=== PATIENT | male | born 1955 | race African-American/Black ===

== ENCOUNTER 2019-06-21 12:12 | Inpatient (IN) | payer MEDICAID ==
[~2019-06-21] VITALS: Ht 182.9 cm; Wt 56.0 kg
[2019-06-21] VITALS (28 sets, daily range): BP systolic 55–138; BP diastolic 14–88
[2019-06-21] MEDS ORDERED: SODIUM CHLORIDE 0.9% 1,000 ML IV ONE ×3 (12:31→13:35)
[2019-06-21] MEDS ORDERED: ONDANSETRON HCL 4MG/2ML INJ IV STA (12:31)
[2019-06-21] MEDS ORDERED: FAMOTIDINE 20MG/2ML VIAL IV ONE (12:45)
[2019-06-21] MEDS ORDERED: DEXT 5%/0.45% NACL KCL 20MEQ/L 1,000 ML IV SCH ×2 (13:34→17:30)
[2019-06-21] MEDS ORDERED: BUPIVACAINE HCL 0.5% (5MG/ML) 50ML ONE (13:37)
[2019-06-21] MEDS ORDERED: MIDAZOLAM HCL 2 MG/2 ML VIAL ONE (13:40)
[2019-06-21] MEDS ORDERED: PROPOFOL 200MG/20ML VIAL IV ONE ×2 (13:40→13:45)
[2019-06-21] MEDS ORDERED: FENTANYL CITRATE/PF 50MCG/ML 2ML VIAL ONE (13:40)
[2019-06-21] MEDS ORDERED: ROCURONIUM BROMIDE 10MG/ML VIAL 5ML IV ONE (13:40)
[2019-06-21] MEDS ORDERED: SUCCINYLCHOLINE CHLORIDE 200MG/10ML IV ONE (13:41)
[2019-06-21] MEDS ORDERED: PIPERACILLIN/TAZ 3.375G PREMIX 50 ML IV ONE (13:45)
[2019-06-21] MEDS ORDERED: ONDANSETRON HCL 4MG/2ML INJ IV ONE (13:45)
[2019-06-21] MEDS ORDERED: ETOMIDATE 2MG/ML 10ML VIAL IV ONE (13:45)
[2019-06-21] MEDS ORDERED: ONDANSETRON HCL 4MG/2ML INJ IV PRN (13:45)
[2019-06-21] MEDS ORDERED: PIPERACILLIN/TAZOBACTAM 3.375 G in DEXT 5% WATER 100 ML IV SCH (13:45)
[2019-06-21] MEDS ORDERED: MORPHINE SULFATE 2 MG/ML CPJ (NOT FOR IM USE) IV PRN (13:45)
[2019-06-21] MEDS ORDERED: LIDOCAINE HCL/PF 1% 10 MG/ML 5ML VIAL ONE (13:54)
[2019-06-21] MEDS ORDERED: DIPHENHYDRAMINE 50MG/ML VIAL IV PRN (14:15)
[2019-06-21] MEDS ORDERED: ACETAMINOPHEN 650MG SUPP PR PRN (14:15)
[2019-06-21 14:48] LABS: HEMATOCRIT. 39.2 % (42.0-52.0); HEMOGLOBIN. 13.3 g/dL (14.0-18.0); MEAN CORPUSCULAR HEMOGLOBIN 33.3 pg (28.0-32.0); MEAN CORPUSCULAR VOLUME 97.8 fL (80.0-94.0); RED CELL DISTRIBUTION WIDTH 14.6 % (11.6-14.6)
[2019-06-21 14:50] LABS: CHLORIDE 109 mEq/L (98-107)
[2019-06-21 14:51] LABS: INR 1.4; PROTHROMBIN TIME 13.8 sec (9.6-11.0)
[2019-06-21 14:58] LABS: CLARITY URINE CLOUDY (CLEAR); COLOR URINE YELLOW (YELLOW); KETONES URINE NEGATIVE (NEGATIVE); LEUKOCYTE ESTERASE URINE TRACE (NEGATIVE); NITRITE URINE NEGATIVE (NEGATIVE); OCCULT BLOOD URINE 2+ (NEGATIVE); PROTEIN URINE 1+ (NEGATIVE); SPECIFIC GRAVITY URINE 1.016 (1.005-1.030); UROBILINOGEN URINE 0.2 E.U./dL (0.2-1.0)
[2019-06-21] MEDS ORDERED: NEOSTIGMINE METHYLSULFATE 1MG/ML 10 ML VIAL ONE (15:26)
[2019-06-21] MEDS ORDERED: GLYCOPYRROLATE 0.2 MG/ML 2ML VIAL ONE (15:27)
[2019-06-21 15:43] LABS: MEAN PLATELET VOLUME 8.1 fl (7.4-10.4); PLATELET 233 x1000/uL (130-400)
[2019-06-21 15:53] LABS: PLATELET ESTIMATE NORMAL
[2019-06-21] MEDS: MORPHINE SULFATE 2 MG/ML CPJ (NOT FOR IM USE) IV PRN (16:26)
[2019-06-21 16:27] LABS: BG CARBOXYHEMOGLOBIN 0.2 % (0.5-1.5); BG DEOXYHEMOGLOBIN 7.4 % (0.0-5.0); BG HCO3 ACT 15.9 mmol/L (22.0-26.0); BG METHEMOGLOBIN 0.3 % (0.0-1.5); BG OXYGEN SATURATION 92.6 % (92.0-98.5); BG OXYHEMOGLOBIN 92.1 % (94.0-97.0); BG PCO2 42.7 mmHg (35.0-45.0); BG PH 7.188 (7.350-7.450); BG PO2 80.6 mmHg (75.0-100.0); BG SAMPLE SITE RIGHT BRACHIAL; BG TIDAL VOLUME(mL) 450 mL; BG TOTAL HEMOGLOBIN 15.8 g/dL (12.0-18.0); BG VENT MODE VENT - A/C; BG VENT RATE 14 set
[2019-06-21] MEDS: PROPOFOL 10MG/ML 100ML 100 ML IV PRN (16:30)
[2019-06-21] MEDS ORDERED: SODIUM BICARBONATE 8.4% 1 MEQ/ML 50ML SYR IV NR (16:45)
[2019-06-21] MEDS: SODIUM CHLORIDE 0.9% 1,000 ML IV SCH ×2 (16:45→18:31)
[2019-06-21] MEDS ORDERED: SODIUM CHLORIDE 0.9% 500 ML IV SCH ×2 (19:15→20:15)
[2019-06-21] MEDS: DEXT 5%/0.45% NACL KCL 20MEQ/L 1,000 ML IV SCH (19:18)
[2019-06-21] MEDS: IPRATROPIUM/ALBUTEROL 0.5-3(2.5)MG/3ML NEB HHN SCH (20:47)
[2019-06-21] MEDS ORDERED: FAMOTIDINE 20MG/2ML VIAL IV SCH (21:00)
[2019-06-21] MEDS: FAMOTIDINE 20MG/2ML VIAL IV SCH (21:16)
[2019-06-21] MEDS: NOREPINEPHRINE 8 MG in DEXT 5% WATER 242 ML IV PRN (21:17)
[2019-06-22] VITALS (76 sets, daily range): BP systolic 44–181; BP diastolic 27–105
[2019-06-22] MEDS: IPRATROPIUM/ALBUTEROL 0.5-3(2.5)MG/3ML NEB HHN SCH ×3 (03:00→21:32)
[2019-06-22] MEDS: PROPOFOL 10MG/ML 100ML 100 ML IV PRN (05:26)
[2019-06-22 05:46] LABS: CHLORIDE 110 mEq/L (98-107)
[2019-06-22 05:47] LABS: HEMATOCRIT. 43.6 % (42.0-52.0); HEMOGLOBIN. 14.8 g/dL (14.0-18.0); MEAN CORPUSCULAR VOLUME 96.8 fL (80.0-94.0); MEAN PLATELET VOLUME 8.4 fl (7.4-10.4); PLATELET 194 x1000/uL (130-400); RED BLOOD CELL COUNT 4.51 mill/uL (4.7-6.1); RED CELL DISTRIBUTION WIDTH 14.7 % (11.6-14.6)
[2019-06-22] MEDS: DEXT 5%/0.45% NACL KCL 20MEQ/L 1,000 ML IV SCH ×2 (05:51→15:12)
[2019-06-22 07:12] LABS: PLATELET ESTIMATE NORMAL
[2019-06-22] MEDS: NOREPINEPHRINE 8 MG in DEXT 5% WATER 242 ML IV PRN (07:24)
[2019-06-22] MEDS: BUDESONIDE 0.5MG/2ML NEB HHN SCH ×2 (08:09→21:32)
[2019-06-22 08:17] LABS: BG BASE EXCESS -7.6 mmol/L (-2.0-2.0); BG CARBOXYHEMOGLOBIN 0.4 % (0.5-1.5); BG DEOXYHEMOGLOBIN 2.7 % (0.0-5.0); BG FRACTION INSPIRED OXYGEN 50; BG HCO3 ACT 17.3 mmol/L (22.0-26.0); BG METHEMOGLOBIN 0.2 % (0.0-1.5); BG OXYGEN SATURATION 97.3 % (92.0-98.5); BG OXYHEMOGLOBIN 96.7 % (94.0-97.0); BG PCO2 33.7 mmHg (35.0-45.0); BG PH 7.329 (7.350-7.450); BG PO2 101.9 mmHg (75.0-100.0); BG SAMPLE SITE RIGHT FEMORAL; BG TIDAL VOLUME(mL) 450 mL; BG TOTAL HEMOGLOBIN 13.6 g/dL (12.0-18.0); BG VENT MODE VENT - A/C; BG VENT RATE 18 set
[2019-06-22 12:40] LABS: BG BASE EXCESS -7.3 mmol/L (-2.0-2.0); BG CARBOXYHEMOGLOBIN 0.7 % (0.5-1.5); BG DEOXYHEMOGLOBIN 3.9 % (0.0-5.0); BG FRACTION INSPIRED OXYGEN 40; BG HCO3 ACT 16.7 mmol/L (22.0-26.0); BG METHEMOGLOBIN 0.1 % (0.0-1.5); BG OXYGEN SATURATION 96.1 % (92.0-98.5); BG OXYHEMOGLOBIN 95.3 % (94.0-97.0); BG PH 7.364 (7.350-7.450); BG PO2 83.5 mmHg (75.0-100.0); BG PRESSURE SUPPORT 8; BG SAMPLE SITE RIGHT BRACHIAL; BG VENT MODE VENT - CPAP
[2019-06-22] MEDS ORDERED: PIPERACILLIN/TAZOBACTAM 3.375 G in DEXT 5% WATER 100 ML IV SCH (13:00)
[2019-06-22] MEDS: PIPERACILLIN/TAZOBACTAM 2.25 G in DEXTROSE 5% WATER 50 ML IV SCH ×2 (14:00→20:27)
[2019-06-22] MEDS: SODIUM CHLORIDE 0.9% 1,000 ML IV SCH (14:00)
[2019-06-22] MEDS: IPRATROPIUM/ALBUTEROL 0.5-3(2.5)MG/3ML NEB HHN PRN (16:04)
[2019-06-22 16:20] LABS: HEPATITIS B SURFACE ANTIGEN NEGATIVE
[2019-06-22 16:50] LABS: HEPATITIS A AB IGM NEGATIVE (NEGATIVE)
[2019-06-22] MEDS: FAMOTIDINE 20MG/2ML VIAL IV SCH (20:27)
[2019-06-23] VITALS (41 sets, daily range): BP systolic 97–140; BP diastolic 50–84
[2019-06-23] MEDS: DEXT 5%/0.45% NACL KCL 20MEQ/L 1,000 ML IV SCH ×3 (01:05→21:10)
[2019-06-23] MEDS: PIPERACILLIN/TAZOBACTAM 2.25 G in DEXTROSE 5% WATER 50 ML IV SCH ×2 (02:25→08:14)
[2019-06-23] MEDS: IPRATROPIUM/ALBUTEROL 0.5-3(2.5)MG/3ML NEB HHN SCH ×4 (02:38→20:59)
[2019-06-23 05:50] LABS: HEMATOCRIT. 35.4 % (42.0-52.0); HEMOGLOBIN. 12.3 g/dL (14.0-18.0); MEAN CORPUSCULAR HEMOGLOBIN 33.2 pg (28.0-32.0); MEAN CORPUSCULAR VOLUME 95.9 fL (80.0-94.0); PLATELET 86 x1000/uL (130-400); RED BLOOD CELL COUNT 3.69 mill/uL (4.7-6.1)
[2019-06-23 05:57] LABS: CHLORIDE 112 mEq/L (98-107)
[2019-06-23 07:01] LABS: PLATELET ESTIMATE DECREASED
[2019-06-23] MEDS: BUDESONIDE 0.5MG/2ML NEB HHN SCH ×2 (09:03→21:00)
[2019-06-23] MEDS ORDERED: CEFEPIME 2,000 MG in DEXT 5% WATER 100 ML IV SCH (12:00)
[2019-06-23] MEDS: METRONIDAZOLE 500 MG PREMIX 100 ML IV SCH ×2 (14:15→22:03)
[2019-06-23] MEDS: FAMOTIDINE 20MG/2ML VIAL IV SCH (20:23)
[2019-06-23] MEDS: CEFAZOLIN 2,000 MG in DEXT 5% WATER 100 ML IV SCH (21:10)
[2019-06-24] VITALS (36 sets, daily range): BP systolic 90–129; BP diastolic 34–74
[2019-06-24] MEDS: IPRATROPIUM/ALBUTEROL 0.5-3(2.5)MG/3ML NEB HHN SCH ×4 (02:24→22:01)
[2019-06-24] MEDS: CEFAZOLIN 2,000 MG in DEXT 5% WATER 100 ML IV SCH ×3 (04:08→20:49)
[2019-06-24] MEDS: METRONIDAZOLE 500 MG PREMIX 100 ML IV SCH ×3 (06:09→23:41)
[2019-06-24 06:53] LABS: HEMATOCRIT. 33.1 % (42.0-52.0); HEMOGLOBIN. 11.6 g/dL (14.0-18.0); MEAN CORPUSCULAR HEMOGLOBIN 33.4 pg (28.0-32.0); MEAN CORPUSCULAR VOLUME 95.6 fL (80.0-94.0); RED BLOOD CELL COUNT 3.46 mill/uL (4.7-6.1)
[2019-06-24 07:13] LABS: CHLORIDE 108 mEq/L (98-107)
[2019-06-24] MEDS: DEXT 5%/0.45% NACL KCL 20MEQ/L 1,000 ML IV SCH ×2 (07:50→17:46)
[2019-06-24 08:11] LABS: HIV SCREEN 4G Non Reactive (Non Reactive)
[2019-06-24] MEDS ORDERED: SODIUM CHLORIDE 0.9% 500 ML IV ONE (11:15)
[2019-06-24] MEDS: BUDESONIDE 0.5MG/2ML NEB HHN SCH ×2 (11:40→21:59)
[2019-06-24] MEDS: MORPHINE SULFATE 2 MG/ML CPJ (NOT FOR IM USE) IV PRN (17:46)
[2019-06-24] MEDS: FAMOTIDINE 20MG/2ML VIAL IV SCH (20:49)
[2019-06-25] VITALS (57 sets, daily range): BP systolic 55–149; BP diastolic 34–83
[2019-06-25] MEDS: DEXT 5%/0.45% NACL KCL 20MEQ/L 1,000 ML IV SCH ×3 (04:10→19:36)
[2019-06-25] MEDS: CEFAZOLIN 2,000 MG in DEXT 5% WATER 100 ML IV SCH ×2 (05:12→12:14)
[2019-06-25] MEDS: METRONIDAZOLE 500 MG PREMIX 100 ML IV SCH ×3 (05:13→22:09)
[2019-06-25 07:30] LABS: CHLORIDE 110 mEq/L (98-107)
[2019-06-25 07:34] LABS: HEMATOCRIT. 35.1 % (42.0-52.0); HEMOGLOBIN. 11.9 g/dL (14.0-18.0); MEAN CORPUSCULAR HEMOGLOBIN 32.7 pg (28.0-32.0); RED BLOOD CELL COUNT 3.65 mill/uL (4.7-6.1); RED CELL DISTRIBUTION WIDTH 15.2 % (11.6-14.6)
[2019-06-25] MEDS: IPRATROPIUM/ALBUTEROL 0.5-3(2.5)MG/3ML NEB HHN SCH ×2 (09:43→20:19)
[2019-06-25] MEDS: BUDESONIDE 0.5MG/2ML NEB HHN SCH ×2 (09:43→20:19)
[2019-06-25 11:18] LABS: PLATELET ESTIMATE MARKEDLY DECREASED
[2019-06-25 11:23] LABS: MEAN PLATELET VOLUME 7.4 fl (7.4-10.4); PLATELET 26 x1000/uL (130-400)
[2019-06-25] MEDS: MORPHINE SULFATE 2 MG/ML CPJ (NOT FOR IM USE) IV PRN (12:54)
[2019-06-25] MEDS ORDERED: HYDROMORPHONE HCL/PF 2MG/ML CPJ IV PRN (14:15)
[2019-06-25] MEDS ORDERED: NALOXONE HCL 0.4 MG/ML 1ML VIAL IV PRN (14:15)
[2019-06-25 14:20] LABS: BG CARBOXYHEMOGLOBIN 1.3 % (0.5-1.5); BG DEOXYHEMOGLOBIN 27.7 % (0.0-5.0); BG FRACTION INSPIRED OXYGEN 60; BG HCO3 ACT 17.4 mmol/L (22.0-26.0); BG METHEMOGLOBIN 0.1 % (0.0-1.5); BG OXYGEN SATURATION 71.9 % (92.0-98.5); BG OXYHEMOGLOBIN 70.9 % (94.0-97.0); BG PCO2 35.5 mmHg (35.0-45.0); BG PH 7.308 (7.350-7.450); BG PO2 39.7 mmHg (75.0-100.0); BG SAMPLE SITE RIGHT RADIAL; BG TOTAL HEMOGLOBIN 13.8 g/dL (12.0-18.0); BG VENT MODE MASK - SIMPLE
[2019-06-25] MEDS: IPRATROPIUM BROMIDE (0.02%) 0.5MG/2.5ML NEB HHN SCH (15:12)
[2019-06-25 15:50] LABS: INR 1.2; PROTHROMBIN TIME 12.5 sec (9.6-11.0)
[2019-06-25] MEDS ORDERED: ETOMIDATE 2MG/ML 10ML VIAL IV ONE (15:52)
[2019-06-25] MEDS ORDERED: SUCCINYLCHOLINE CHLORIDE 200MG/10ML IV ONE (15:52)
[2019-06-25 16:31] LABS: BG BASE EXCESS -7.2 mmol/L (-2.0-2.0); BG CARBOXYHEMOGLOBIN 1.4 % (0.5-1.5); BG DEOXYHEMOGLOBIN 11.6 % (0.0-5.0); BG FRACTION INSPIRED OXYGEN 100; BG HCO3 ACT 19.7 mmol/L (22.0-26.0); BG METHEMOGLOBIN 0.2 % (0.0-1.5); BG OXYGEN SATURATION 88.2 % (92.0-98.5); BG OXYHEMOGLOBIN 86.8 % (94.0-97.0); BG PO2 60.8 mmHg (75.0-100.0); BG SAMPLE SITE RIGHT BRACHIAL; BG TIDAL VOLUME(mL) 500 mL; BG TOTAL HEMOGLOBIN 13.9 g/dL (12.0-18.0); BG VENT MODE VENT - A/C; BG VENT RATE 14 set
[2019-06-25] MEDS: PROPOFOL 10MG/ML 100ML 100 ML IV PRN (16:59)
[2019-06-25 19:13] LABS: PLATELET ESTIMATE MARKEDLY DECREASED
[2019-06-25 19:14] LABS: PLATELET 12 x1000/uL (130-400)
[2019-06-25] MEDS ORDERED: SODIUM BICARBONATE 8.4% 1 MEQ/ML 50ML SYR IV ONE (19:30)
[2019-06-25] MEDS ORDERED: SODIUM BICARBONATE 8.4% 1 MEQ/ML 50ML SYR IV NR (19:35)
[2019-06-25] MEDS ORDERED: SODIUM CHLORIDE 0.9% 250 ML IV NR (19:36)
[2019-06-25] MEDS ORDERED: NOREPINEPHRINE 4MG/250ML PMX 250 ML IV ONE (19:45)
[2019-06-25] MEDS ORDERED: PHENYLEPHRINE 20 MG in DEXT 5% WATER 248 ML IV PRN ×2 (19:45→19:47)
[2019-06-25] MEDS ORDERED: NOREPINEPHRINE 4 MG in DEXT 5% WATER 246 ML IV PRN (20:00)
[2019-06-25 20:09] LABS: BG CARBOXYHEMOGLOBIN 0.3 % (0.5-1.5); BG DEOXYHEMOGLOBIN 9.4 % (0.0-5.0); BG FRACTION INSPIRED OXYGEN 100; BG HCO3 ACT 21.7 mmol/L (22.0-26.0); BG METHEMOGLOBIN 0.1 % (0.0-1.5); BG OXYGEN SATURATION 90.6 % (92.0-98.5); BG OXYHEMOGLOBIN 90.2 % (94.0-97.0); BG PCO2 37.4 mmHg (35.0-45.0); BG PH 7.381 (7.350-7.450); BG PO2 60.6 mmHg (75.0-100.0); BG SAMPLE SITE RIGHT FEMORAL; BG TIDAL VOLUME(mL) 500 mL; BG TOTAL HEMOGLOBIN 11.3 g/dL (12.0-18.0); BG VENT MODE VENT - A/C; BG VENT RATE 22 set
[2019-06-25] MEDS: FAMOTIDINE 20MG/2ML VIAL IV SCH (22:09)
[2019-06-26] VITALS (102 sets, daily range): BP systolic 50–149; BP diastolic 15–83
[2019-06-26] MEDS: CEFAZOLIN 2,000 MG in DEXT 5% WATER 100 ML IV SCH ×3 (00:01→12:53)
[2019-06-26] MEDS: IPRATROPIUM/ALBUTEROL 0.5-3(2.5)MG/3ML NEB HHN SCH ×7 (00:03→23:40)
[2019-06-26] MEDS: NOREPINEPHRINE 8 MG in DEXT 5% WATER 242 ML IV PRN ×4 (00:40→22:47)
[2019-06-26] MEDS: LORAZEPAM 2MG/ML CPJ IV PRN (03:32)
[2019-06-26 05:14] LABS: BASOPHILS % 0.2 % (0.0-2.0); EOSINOPHILS % 0.4 % (0.0-5.0); HEMATOCRIT. 32.1 % (42.0-52.0); HEMOGLOBIN. 11.1 g/dL (14.0-18.0); LYMPHOCYTES % 14.4 % (20.0-50.0); MEAN CORPUSCULAR HEMOGLOBIN 32.8 pg (28.0-32.0); MEAN CORPUSCULAR VOLUME 94.8 fL (80.0-94.0); MEAN PLATELET VOLUME 9.8 fl (7.4-10.4); MONOCYTES % 7.6 % (2.0-8.0); NEUTROPHILS % 77.4 % (40.0-76.0); RED BLOOD CELL COUNT 3.39 mill/uL (4.7-6.1); RED CELL DISTRIBUTION WIDTH 15.2 % (11.6-14.6)
[2019-06-26 05:38] LABS: CHLORIDE 109 mEq/L (98-107)
[2019-06-26] MEDS: METRONIDAZOLE 500 MG PREMIX 100 ML IV SCH ×3 (06:13→21:44)
[2019-06-26 08:16] LABS: PLATELET 24 x1000/uL (130-400)
[2019-06-26] MEDS: IPRATROPIUM BROMIDE (0.02%) 0.5MG/2.5ML NEB HHN SCH ×2 (08:32→12:31)
[2019-06-26] MEDS: BUDESONIDE 0.5MG/2ML NEB HHN SCH ×2 (08:32→19:50)
[2019-06-26 08:45] LABS: VITAMIN B12 SERUM > 2000.0 pg/mL (211-911)
[2019-06-26 08:58] LABS: BG BASE EXCESS -5.8 mmol/L (-2.0-2.0); BG CARBOXYHEMOGLOBIN 0.3 % (0.5-1.5); BG DEOXYHEMOGLOBIN 5.7 % (0.0-5.0); BG FRACTION INSPIRED OXYGEN 100; BG HCO3 ACT 19.9 mmol/L (22.0-26.0); BG METHEMOGLOBIN 0.3 % (0.0-1.5); BG OXYGEN SATURATION 94.3 % (92.0-98.5); BG OXYHEMOGLOBIN 93.7 % (94.0-97.0); BG PH 7.315 (7.350-7.450); BG PO2 82.8 mmHg (75.0-100.0); BG SAMPLE SITE RIGHT RADIAL; BG TIDAL VOLUME(mL) 500 mL; BG TOTAL HEMOGLOBIN 12.4 g/dL (12.0-18.0); BG VENT MODE VENT - A/C; BG VENT RATE 22 set
[2019-06-26] MEDS: PROPOFOL 10MG/ML 100ML 100 ML IV PRN ×2 (09:33→21:45)
[2019-06-26] MEDS: DEXT 5%/0.45% NACL KCL 20MEQ/L 1,000 ML IV SCH (10:33)
[2019-06-26] MEDS ORDERED: LIDOCAINE HCL 1% 20ML VIAL (Pyxis) INJ ONE (11:02)
[2019-06-26] MEDS ORDERED: SODIUM BICARBONATE 4% (2.4MEQ) 5ML VIAL IV ONE (11:03)
[2019-06-26] MEDS: SODIUM BICARBONATE 100 MEQ in DEXTROSE 5% WATER 900 ML IV SCH (12:53)
[2019-06-26 16:27] LABS: BG CARBOXYHEMOGLOBIN 0.2 % (0.5-1.5); BG DEOXYHEMOGLOBIN 5.8 % (0.0-5.0); BG FRACTION INSPIRED OXYGEN 100; BG HCO3 ACT 18.9 mmol/L (22.0-26.0); BG METHEMOGLOBIN 0.2 % (0.0-1.5); BG OXYGEN SATURATION 94.2 % (92.0-98.5); BG OXYHEMOGLOBIN 93.8 % (94.0-97.0); BG PCO2 35.3 mmHg (35.0-45.0); BG PH 7.347 (7.350-7.450); BG PO2 75.1 mmHg (75.0-100.0); BG SAMPLE SITE RIGHT RADIAL; BG TIDAL VOLUME(mL) 500 mL; BG TOTAL HEMOGLOBIN 12.6 g/dL (12.0-18.0); BG VENT MODE VENT - A/C; BG VENT RATE 24 set
[2019-06-26] MEDS ORDERED: VANCOMYCIN 1 G PREMIX 200 ML IV NR (20:00)
[2019-06-26] MEDS: CEFEPIME 2,000 MG in DEXT 5% WATER 100 ML IV SCH (20:25)
[2019-06-26] MEDS: FAMOTIDINE 20MG/2ML VIAL IV SCH (20:25)
[2019-06-27] VITALS (100 sets, daily range): BP systolic 58–140; BP diastolic 31–83
[2019-06-27] MEDS: IPRATROPIUM/ALBUTEROL 0.5-3(2.5)MG/3ML NEB HHN SCH ×5 (03:50→21:14)
[2019-06-27] MEDS: NOREPINEPHRINE 8 MG in DEXT 5% WATER 242 ML IV PRN ×4 (04:17→19:07)
[2019-06-27 05:43] LABS: EOSINOPHILS % 0.5 % (0.0-5.0); HEMATOCRIT. 32.3 % (42.0-52.0); MEAN CORPUSCULAR HEMOGLOBIN 32.3 pg (28.0-32.0); MEAN CORPUSCULAR VOLUME 94.8 fL (80.0-94.0); MEAN PLATELET VOLUME 8.2 fl (7.4-10.4); MONOCYTES % 4.7 % (2.0-8.0); NEUTROPHILS % 82.8 % (40.0-76.0); PLATELET 51 x1000/uL (130-400); RED BLOOD CELL COUNT 3.41 mill/uL (4.7-6.1); RED CELL DISTRIBUTION WIDTH 15.2 % (11.6-14.6)
[2019-06-27] MEDS: VANCOMYCIN 750 MG PREMIX 150 ML IV SCH ×3 (05:51→22:37)
[2019-06-27] MEDS: METRONIDAZOLE 500 MG PREMIX 100 ML IV SCH ×3 (05:52→21:28)
[2019-06-27 05:59] LABS: CHLORIDE 107 mEq/L (98-107)
[2019-06-27 06:08] LABS: PHOSPHORUS 2.7 mg/dL (2.5-4.9)
[2019-06-27] MEDS: PROPOFOL 10MG/ML 100ML 100 ML IV PRN (07:55)
[2019-06-27] MEDS: BUDESONIDE 0.5MG/2ML NEB HHN SCH ×2 (08:08→21:14)
[2019-06-27] MEDS: SODIUM BICARBONATE 100 MEQ in DEXTROSE 5% WATER 900 ML IV SCH ×2 (08:34→21:28)
[2019-06-27] MEDS: CEFEPIME 2,000 MG in DEXT 5% WATER 100 ML IV SCH ×2 (08:35→20:30)
[2019-06-27] MEDS: FOLIC ACID 1MG TABLET PO SCH ×2 (09:00→11:12)
[2019-06-27] MEDS ORDERED: MAGNESIUM 2 G PREMIX 50 ML IV NR (10:00)
[2019-06-27 11:29] LABS: BG BASE EXCESS -0.8 mmol/L (-2.0-2.0); BG CARBOXYHEMOGLOBIN 0.3 % (0.5-1.5); BG DEOXYHEMOGLOBIN 2.1 % (0.0-5.0); BG FRACTION INSPIRED OXYGEN 60; BG METHEMOGLOBIN 0.1 % (0.0-1.5); BG OXYGEN SATURATION 97.9 % (92.0-98.5); BG OXYHEMOGLOBIN 97.5 % (94.0-97.0); BG PCO2 30.5 mmHg (35.0-45.0); BG PH 7.475 (7.350-7.450); BG PO2 115.6 mmHg (75.0-100.0); BG SAMPLE SITE RIGHT BRACHIAL; BG TIDAL VOLUME(mL) 500 mL; BG TOTAL HEMOGLOBIN 11.9 g/dL (12.0-18.0); BG VENT MODE VENT - A/C; BG VENT RATE 22 set
[2019-06-27] MEDS: MIDAZOLAM HCL 100 MG in DEXT 5% WATER 80 ML IV PRN (12:55)
[2019-06-27] MEDS: FENTANYL CITRATE/PF 500 MCG in SODIUM CHLORIDE 0.9% 40 ML IV PRN ×3 (12:56→19:14)
[2019-06-27] MEDS: FAMOTIDINE 20MG/2ML VIAL IV SCH (20:30)
[2019-06-27] MEDS ORDERED: IOHEXOL-350 100 ML BOTTLE ONE (22:11)
[2019-06-28] VITALS (98 sets, daily range): BP systolic 56–165; BP diastolic 15–94
[2019-06-28] MEDS: IPRATROPIUM/ALBUTEROL 0.5-3(2.5)MG/3ML NEB HHN SCH ×6 (01:08→20:16)
[2019-06-28] MEDS: VANCOMYCIN 750 MG PREMIX 150 ML IV SCH (06:10)
[2019-06-28] MEDS: METRONIDAZOLE 500 MG PREMIX 100 ML IV SCH ×3 (06:12→21:00)
[2019-06-28 06:19] LABS: BASOPHILS % 0.1 % (0.0-2.0); EOSINOPHILS % 0.4 % (0.0-5.0); HEMATOCRIT. 34.8 % (42.0-52.0); HEMOGLOBIN. 11.8 g/dL (14.0-18.0); MEAN CORPUSCULAR VOLUME 94.6 fL (80.0-94.0); MEAN PLATELET VOLUME 8.8 fl (7.4-10.4); MONOCYTES % 4.3 % (2.0-8.0); NEUTROPHILS % 86.2 % (40.0-76.0); RED BLOOD CELL COUNT 3.68 mill/uL (4.7-6.1); RED CELL DISTRIBUTION WIDTH 15.1 % (11.6-14.6)
[2019-06-28 06:41] LABS: CHLORIDE 100 mEq/L (98-107)
[2019-06-28 07:04] LABS: VANCOMYCIN TROUGH 15.6 ug/mL (5.0-10.0)
[2019-06-28 07:24] LABS: BG BASE EXCESS -0.3 mmol/L (-2.0-2.0); BG CARBOXYHEMOGLOBIN 0.3 % (0.5-1.5); BG DEOXYHEMOGLOBIN 5.7 % (0.0-5.0); BG FRACTION INSPIRED OXYGEN 40; BG HCO3 ACT 23.7 mmol/L (22.0-26.0); BG METHEMOGLOBIN 0.2 % (0.0-1.5); BG OXYGEN SATURATION 94.3 % (92.0-98.5); BG OXYHEMOGLOBIN 93.8 % (94.0-97.0); BG PCO2 36.5 mmHg (35.0-45.0); BG PO2 74.3 mmHg (75.0-100.0); BG SAMPLE SITE RIGHT BRACHIAL; BG TIDAL VOLUME(mL) 500 mL; BG TOTAL HEMOGLOBIN 12.2 g/dL (12.0-18.0); BG VENT MODE 18; BG VENT RATE 18 set
[2019-06-28 07:37] LABS: PLATELET 28 x1000/uL (130-400)
[2019-06-28] MEDS: BUDESONIDE 0.5MG/2ML NEB HHN SCH ×2 (08:13→20:15)
[2019-06-28] MEDS: FOLIC ACID 1MG TABLET PO SCH (08:31)
[2019-06-28] MEDS: CEFEPIME 2,000 MG in DEXT 5% WATER 100 ML IV SCH ×2 (08:41→19:59)
[2019-06-28] MEDS: NOREPINEPHRINE 8 MG in DEXT 5% WATER 242 ML IV PRN ×2 (08:41→17:15)
[2019-06-28] MEDS: DEXT 5%/0.45% NACL 1000ML 1,000 ML IV SCH (11:33)
[2019-06-28 14:15] LABS: *AMPHETAMINES SCREEN URINE NEGATIVE (NEGATIVE); *BARBITURATES SCREEN URINE NEGATIVE (NEGATIVE); *BENZODIAZEPINES SCREEN URINE PRESUMTIVE POSITIVE (NEGATIVE)
[2019-06-28 14:16] LABS: *COCAINE SCREEN URINE NEGATIVE (NEGATIVE); CANNABINOID URINE SCREEN PRESUMTIVE POSITIVE (NEGATIVE); METHADONE URINE SCREEN NEGATIVE (NEGATIVE); OPIATES URINE SCREEN NEGATIVE (NEGATIVE); PHENCYCLIDINE URINE SCREEN NEGATIVE (NEGATIVE)
[2019-06-28] MEDS: VANCOMYCIN 1 G PREMIX 200 ML IV SCH ×2 (14:22→21:00)
[2019-06-28] MEDS: FENTANYL CITRATE/PF 500 MCG in SODIUM CHLORIDE 0.9% 40 ML IV PRN (17:17)
[2019-06-28] MEDS: FAMOTIDINE 20MG/2ML VIAL IV SCH (19:59)
[2019-06-29] VITALS (92 sets, daily range): BP systolic 76–161; BP diastolic 40–91
[2019-06-29] MEDS: IPRATROPIUM/ALBUTEROL 0.5-3(2.5)MG/3ML NEB HHN SCH ×6 (00:10→20:32)
[2019-06-29] MEDS: NOREPINEPHRINE 8 MG in DEXT 5% WATER 242 ML IV PRN ×4 (00:39→19:19)
[2019-06-29] MEDS: MIDAZOLAM HCL 100 MG in DEXT 5% WATER 80 ML IV PRN (03:21)
[2019-06-29] MEDS: FENTANYL CITRATE/PF 500 MCG in SODIUM CHLORIDE 0.9% 40 ML IV PRN ×3 (03:21→16:51)
[2019-06-29] MEDS: METRONIDAZOLE 500 MG PREMIX 100 ML IV SCH ×3 (05:00→21:36)
[2019-06-29] MEDS: DEXT 5%/0.45% NACL 1000ML 1,000 ML IV SCH ×2 (05:52→07:32)
[2019-06-29] MEDS: VANCOMYCIN 1 G PREMIX 200 ML IV SCH (05:52)
[2019-06-29 06:23] LABS: BASOPHILS % 0.2 % (0.0-2.0); EOSINOPHILS % 0.2 % (0.0-5.0); HEMATOCRIT. 32.3 % (42.0-52.0); HEMOGLOBIN. 11.1 g/dL (14.0-18.0); LYMPHOCYTES % 8.5 % (20.0-50.0); MEAN CORPUSCULAR HEMOGLOBIN 32.7 pg (28.0-32.0); MEAN PLATELET VOLUME 9.5 fl (7.4-10.4); MONOCYTES % 4.7 % (2.0-8.0); NEUTROPHILS % 86.4 % (40.0-76.0); PLATELET 59 x1000/uL (130-400); RED CELL DISTRIBUTION WIDTH 14.9 % (11.6-14.6)
[2019-06-29 07:19] LABS: CHLORIDE 100 mEq/L (98-107)
[2019-06-29 07:27] LABS: PHOSPHORUS 2.5 mg/dL (2.5-4.9)
[2019-06-29] MEDS: BUDESONIDE 0.5MG/2ML NEB HHN SCH ×2 (08:40→20:32)
[2019-06-29] MEDS: FOLIC ACID 1MG TABLET PO SCH (09:00)
[2019-06-29 09:02] LABS: BG BASE EXCESS 4.3 mmol/L (-2.0-2.0); BG CARBOXYHEMOGLOBIN 0.6 % (0.5-1.5); BG DEOXYHEMOGLOBIN 2.6 % (0.0-5.0); BG FRACTION INSPIRED OXYGEN 40; BG HCO3 ACT 29.8 mmol/L (22.0-26.0); BG METHEMOGLOBIN 0.2 % (0.0-1.5); BG OXYGEN SATURATION 97.4 % (92.0-98.5); BG OXYHEMOGLOBIN 96.6 % (94.0-97.0); BG PH 7.402 (7.350-7.450); BG PO2 103.5 mmHg (75.0-100.0); BG SAMPLE SITE RIGHT RADIAL; BG TIDAL VOLUME(mL) 500 mL; BG TOTAL HEMOGLOBIN 11.2 g/dL (12.0-18.0); BG VENT MODE VENT - A/C; BG VENT RATE 16 set
[2019-06-29] MEDS: CEFEPIME 2,000 MG in DEXT 5% WATER 100 ML IV SCH ×2 (09:04→21:36)
[2019-06-29] MEDS: VANCOMYCIN 750 MG PREMIX 150 ML IV SCH (19:18)
[2019-06-29] MEDS: FAMOTIDINE 20MG/2ML VIAL IV SCH (21:35)
[2019-06-29] MEDS: LORAZEPAM 2MG/ML CPJ IV PRN (21:38)
[2019-06-30] VITALS (92 sets, daily range): BP systolic 51–136; BP diastolic 35–89
[2019-06-30] MEDS: IPRATROPIUM/ALBUTEROL 0.5-3(2.5)MG/3ML NEB HHN SCH ×7 (00:29→23:52)
[2019-06-30] MEDS: NOREPINEPHRINE 8 MG in DEXT 5% WATER 242 ML IV PRN ×4 (00:35→22:36)
[2019-06-30] MEDS: VANCOMYCIN 750 MG PREMIX 150 ML IV SCH ×3 (01:15→18:05)
[2019-06-30 05:51] LABS: BASOPHILS % 0.2 % (0.0-2.0); EOSINOPHILS % 0.3 % (0.0-5.0); HEMATOCRIT. 27.5 % (42.0-52.0); HEMOGLOBIN. 9.5 g/dL (14.0-18.0); MEAN CORPUSCULAR HEMOGLOBIN 32.8 pg (28.0-32.0); MEAN CORPUSCULAR VOLUME 94.9 fL (80.0-94.0); MEAN PLATELET VOLUME 9.3 fl (7.4-10.4); MONOCYTES % 5.1 % (2.0-8.0); NEUTROPHILS % 84.4 % (40.0-76.0); RED CELL DISTRIBUTION WIDTH 14.5 % (11.6-14.6)
[2019-06-30 06:03] LABS: PLATELET 34 x1000/uL (130-400)
[2019-06-30] MEDS: METRONIDAZOLE 500 MG PREMIX 100 ML IV SCH ×3 (06:20→21:06)
[2019-06-30] MEDS: FENTANYL CITRATE/PF 500 MCG in SODIUM CHLORIDE 0.9% 40 ML IV PRN ×2 (06:21→21:10)
[2019-06-30] MEDS: DEXT 5%/0.45% NACL 1000ML 1,000 ML IV SCH (06:22)
[2019-06-30 06:32] LABS: CHLORIDE 102 mEq/L (98-107)
[2019-06-30 07:42] LABS: BG BASE EXCESS 1.5 mmol/L (-2.0-2.0); BG CARBOXYHEMOGLOBIN 0.1 % (0.5-1.5); BG DEOXYHEMOGLOBIN 16.5 % (0.0-5.0); BG FRACTION INSPIRED OXYGEN 40; BG HCO3 ACT 27.2 mmol/L (22.0-26.0); BG METHEMOGLOBIN 0.2 % (0.0-1.5); BG OXYGEN SATURATION 83.5 % (92.0-98.5); BG OXYHEMOGLOBIN 83.2 % (94.0-97.0); BG PCO2 48.3 mmHg (35.0-45.0); BG PH 7.368 (7.350-7.450); BG PO2 48.5 mmHg (75.0-100.0); BG SAMPLE SITE RIGHT RADIAL; BG TIDAL VOLUME(mL) 500 mL; BG TOTAL HEMOGLOBIN 9.7 g/dL (12.0-18.0); BG VENT MODE VENT - A/C; BG VENT RATE 16 set
[2019-06-30] MEDS: BUDESONIDE 0.5MG/2ML NEB HHN SCH ×2 (08:59→20:17)
[2019-06-30 09:00] LABS: BG BASE EXCESS 3.4 mmol/L (-2.0-2.0); BG CARBOXYHEMOGLOBIN 0.3 % (0.5-1.5); BG DEOXYHEMOGLOBIN 2.9 % (0.0-5.0); BG FRACTION INSPIRED OXYGEN 40; BG HCO3 ACT 28.4 mmol/L (22.0-26.0); BG METHEMOGLOBIN 0.3 % (0.0-1.5); BG OXYGEN SATURATION 97.1 % (92.0-98.5); BG OXYHEMOGLOBIN 96.5 % (94.0-97.0); BG PCO2 44.9 mmHg (35.0-45.0); BG PH 7.419 (7.350-7.450); BG PO2 105.5 mmHg (75.0-100.0); BG SAMPLE SITE RIGHT RADIAL; BG TIDAL VOLUME(mL) 500 mL; BG TOTAL HEMOGLOBIN 10.4 g/dL (12.0-18.0); BG VENT MODE VENT - A/C; BG VENT RATE 16 set
[2019-06-30] MEDS: FOLIC ACID 1MG TABLET PO SCH (09:00)
[2019-06-30] MEDS: CEFEPIME 2,000 MG in DEXT 5% WATER 100 ML IV SCH ×2 (10:33→21:06)
[2019-06-30] MEDS ORDERED: MAGNESIUM 2 G PREMIX 50 ML IV SCH (12:00)
[2019-06-30] MEDS: FAMOTIDINE 20MG/2ML VIAL IV SCH (21:06)
[2019-07-01] VITALS (94 sets, daily range): BP systolic 82–141; BP diastolic 52–99
[2019-07-01] MEDS: DEXT 5%/0.45% NACL 1000ML 1,000 ML IV SCH ×2 (01:26→20:59)
[2019-07-01] MEDS: VANCOMYCIN 750 MG PREMIX 150 ML IV SCH ×3 (01:27→17:56)
[2019-07-01] MEDS: LORAZEPAM 2MG/ML CPJ IV PRN ×4 (01:27→20:20)
[2019-07-01] MEDS: IPRATROPIUM/ALBUTEROL 0.5-3(2.5)MG/3ML NEB HHN SCH ×5 (04:18→20:45)
[2019-07-01] MEDS: FENTANYL CITRATE/PF 500 MCG in SODIUM CHLORIDE 0.9% 40 ML IV PRN ×3 (05:39→20:59)
[2019-07-01 06:04] LABS: BASOPHILS % 0.3 % (0.0-2.0); EOSINOPHILS % 0.2 % (0.0-5.0); HEMATOCRIT. 25.9 % (42.0-52.0); MEAN CORPUSCULAR HEMOGLOBIN 32.8 pg (28.0-32.0); MEAN CORPUSCULAR VOLUME 94.7 fL (80.0-94.0); MEAN PLATELET VOLUME 10.1 fl (7.4-10.4); MONOCYTES % 4.6 % (2.0-8.0); NEUTROPHILS % 85.9 % (40.0-76.0); RED BLOOD CELL COUNT 2.73 mill/uL (4.7-6.1); RED CELL DISTRIBUTION WIDTH 14.7 % (11.6-14.6)
[2019-07-01 06:17] LABS: CHLORIDE 100 mEq/L (98-107)
[2019-07-01 06:44] LABS: PLATELET 30 x1000/uL (130-400)
[2019-07-01] MEDS: NOREPINEPHRINE 8 MG in DEXT 5% WATER 242 ML IV PRN (07:44)
[2019-07-01] MEDS: CEFEPIME 2,000 MG in DEXT 5% WATER 100 ML IV SCH ×2 (08:06→20:59)
[2019-07-01] MEDS: FOLIC ACID 1MG TABLET PO SCH (08:07)
[2019-07-01 08:30] LABS: BG BASE EXCESS 4.1 mmol/L (-2.0-2.0); BG CARBOXYHEMOGLOBIN 0.3 % (0.5-1.5); BG DEOXYHEMOGLOBIN 8.1 % (0.0-5.0); BG FRACTION INSPIRED OXYGEN 40; BG HCO3 ACT 27.7 mmol/L (22.0-26.0); BG METHEMOGLOBIN 0.2 % (0.0-1.5); BG OXYGEN SATURATION 91.9 % (92.0-98.5); BG OXYHEMOGLOBIN 91.4 % (94.0-97.0); BG PCO2 37.8 mmHg (35.0-45.0); BG PH 7.483 (7.350-7.450); BG PO2 62.1 mmHg (75.0-100.0); BG SAMPLE SITE RIGHT RADIAL; BG TIDAL VOLUME(mL) 500 mL; BG TOTAL HEMOGLOBIN 9.5 g/dL (12.0-18.0); BG VENT MODE VENT - A/C; BG VENT RATE 16 set
[2019-07-01] MEDS: BUDESONIDE 0.5MG/2ML NEB HHN SCH ×2 (08:57→20:45)
[2019-07-01] MEDS ORDERED: DIATR MEGLU/DIATRIZOATE SOLN 30ML NG NR (12:00)
[2019-07-01] MEDS ORDERED: DIATR MEGLU/DIATRIZOATE SOLN 120ML ONE (13:22)
[2019-07-01] MEDS: METHYLPREDNISOLONE SOD SUCC 40 MG/ML VIAL IV SCH (17:56)
[2019-07-01] MEDS: FAMOTIDINE 20MG/2ML VIAL IV SCH (21:16)
[2019-07-02] VITALS (95 sets, daily range): BP systolic 83–140; BP diastolic 44–102
[2019-07-02] MEDS: NOREPINEPHRINE 8 MG in DEXT 5% WATER 242 ML IV PRN ×2 (00:39→14:16)
[2019-07-02] MEDS: IPRATROPIUM/ALBUTEROL 0.5-3(2.5)MG/3ML NEB HHN SCH ×6 (00:52→20:15)
[2019-07-02] MEDS: VANCOMYCIN 750 MG PREMIX 150 ML IV SCH ×3 (01:36→17:18)
[2019-07-02] MEDS: LORAZEPAM 2MG/ML CPJ IV PRN ×3 (04:32→19:39)
[2019-07-02] MEDS: FENTANYL CITRATE/PF 1,000 MCG in SODIUM CHLORIDE 0.9% 80 ML IV PRN ×2 (04:33→16:20)
[2019-07-02 06:30] LABS: HEMATOCRIT. 27.3 % (42.0-52.0); HEMOGLOBIN. 9.4 g/dL (14.0-18.0); MEAN CORPUSCULAR HEMOGLOBIN 32.8 pg (28.0-32.0); MEAN PLATELET VOLUME 10.9 fl (7.4-10.4); PLATELET 59 x1000/uL (130-400); RED BLOOD CELL COUNT 2.87 mill/uL (4.7-6.1); RED CELL DISTRIBUTION WIDTH 14.8 % (11.6-14.6)
[2019-07-02 06:36] LABS: CHLORIDE 99 mEq/L (98-107)
[2019-07-02 08:04] LABS: BG BASE EXCESS 5.7 mmol/L (-2.0-2.0); BG CARBOXYHEMOGLOBIN 0.1 % (0.5-1.5); BG DEOXYHEMOGLOBIN 9.1 % (0.0-5.0); BG HCO3 ACT 29.9 mmol/L (22.0-26.0); BG METHEMOGLOBIN 0.4 % (0.0-1.5); BG OXYGEN SATURATION 90.9 % (92.0-98.5); BG OXYHEMOGLOBIN 90.4 % (94.0-97.0); BG PO2 59.8 mmHg (75.0-100.0); BG SAMPLE SITE RIGHT BRACHIAL; BG TIDAL VOLUME(mL) 500 mL; BG VENT MODE VENT - SIMV; BG VENT RATE 10 set
[2019-07-02] MEDS: BUDESONIDE 0.5MG/2ML NEB HHN SCH ×2 (08:47→20:15)
[2019-07-02] MEDS: METHYLPREDNISOLONE SOD SUCC 40 MG/ML VIAL IV SCH ×2 (09:20→17:18)
[2019-07-02] MEDS: CEFEPIME 2,000 MG in DEXT 5% WATER 100 ML IV SCH ×2 (09:21→20:26)
[2019-07-02] MEDS: FOLIC ACID 1MG TABLET PO SCH (09:21)
[2019-07-02 17:11] LABS: PLATELET ESTIMATE MARKEDLY DECREASED
[2019-07-02] MEDS: DEXT 5%/0.45% NACL 1000ML 1,000 ML IV SCH (17:26)
[2019-07-02] MEDS: FAMOTIDINE 20MG/2ML VIAL IV SCH (20:26)
[2019-07-03] VITALS (97 sets, daily range): BP systolic 79–146; BP diastolic 30–104
[2019-07-03] MEDS: IPRATROPIUM/ALBUTEROL 0.5-3(2.5)MG/3ML NEB HHN SCH ×6 (00:14→21:02)
[2019-07-03] MEDS: VANCOMYCIN 750 MG PREMIX 150 ML IV SCH ×3 (01:19→17:15)
[2019-07-03] MEDS: LORAZEPAM 2MG/ML CPJ IV PRN ×3 (01:20→22:03)
[2019-07-03] MEDS: FENTANYL CITRATE/PF 1,000 MCG in SODIUM CHLORIDE 0.9% 80 ML IV PRN ×2 (03:28→21:17)
[2019-07-03] MEDS: NOREPINEPHRINE 8 MG in DEXT 5% WATER 242 ML IV PRN (05:53)
[2019-07-03 05:55] LABS: BASOPHILS % 0.2 % (0.0-2.0); HEMATOCRIT. 22.6 % (42.0-52.0); HEMOGLOBIN. 7.7 g/dL (14.0-18.0); LYMPHOCYTES % 9.5 % (20.0-50.0); MEAN CORPUSCULAR HEMOGLOBIN 32.1 pg (28.0-32.0); MEAN CORPUSCULAR VOLUME 94.1 fL (80.0-94.0); MEAN PLATELET VOLUME 11.2 fl (7.4-10.4); MONOCYTES % 7.3 % (2.0-8.0); RED BLOOD CELL COUNT 2.41 mill/uL (4.7-6.1); RED CELL DISTRIBUTION WIDTH 14.5 % (11.6-14.6)
[2019-07-03 06:02] LABS: CHLORIDE 100 mEq/L (98-107)
[2019-07-03 06:13] LABS: PLATELET 50 x1000/uL (130-400)
[2019-07-03] MEDS: BUDESONIDE 0.5MG/2ML NEB HHN SCH ×2 (07:58→21:02)
[2019-07-03 08:16] LABS: BG BASE EXCESS 4.5 mmol/L (-2.0-2.0); BG CARBOXYHEMOGLOBIN 0.3 % (0.5-1.5); BG HCO3 ACT 28.2 mmol/L (22.0-26.0); BG METHEMOGLOBIN 0.3 % (0.0-1.5); BG OXYHEMOGLOBIN 97.4 % (94.0-97.0); BG PCO2 38.7 mmHg (35.0-45.0); BG PH 7.481 (7.350-7.450); BG PO2 119.6 mmHg (75.0-100.0); BG SAMPLE SITE RIGHT BRACHIAL; BG TIDAL VOLUME(mL) 500 mL; BG TOTAL HEMOGLOBIN 8.9 g/dL (12.0-18.0); BG VENT MODE VENT - A/C; BG VENT RATE 16 set
[2019-07-03] MEDS: METHYLPREDNISOLONE SOD SUCC 40 MG/ML VIAL IV SCH ×2 (09:07→17:15)
[2019-07-03] MEDS: CEFEPIME 2,000 MG in DEXT 5% WATER 100 ML IV SCH ×2 (09:07→20:40)
[2019-07-03] MEDS: FOLIC ACID 1MG TABLET PO SCH (09:08)
[2019-07-03] MEDS ORDERED: NICARDIPINE 100 MG in SODIUM CHLORIDE 0.9% 60 ML IV PRN (10:15)
[2019-07-03 19:20] LABS: BG BASE EXCESS 5.7 mmol/L (-2.0-2.0); BG CARBOXYHEMOGLOBIN 0.3 % (0.5-1.5); BG FRACTION INSPIRED OXYGEN 40; BG HCO3 ACT 29.5 mmol/L (22.0-26.0); BG METHEMOGLOBIN 0.3 % (0.0-1.5); BG OXYHEMOGLOBIN 97.4 % (94.0-97.0); BG PCO2 39.8 mmHg (35.0-45.0); BG PH 7.488 (7.350-7.450); BG PO2 110.9 mmHg (75.0-100.0); BG PRESSURE SUPPORT 12; BG SAMPLE SITE RIGHT RADIAL; BG TIDAL VOLUME(mL) 500 mL; BG TOTAL HEMOGLOBIN 7.9 g/dL (12.0-18.0); BG VENT MODE VENT - SIMV; BG VENT RATE 10 set
[2019-07-03 19:21] LABS: HEMATOCRIT 21.5 % (42.0-52.0); HEMOGLOBIN 7.4 g/dL (14.0-18.0); MEAN CORPUSCULAR HEMOGLOBIN 32.4 pg (28.0-32.0); MEAN CORPUSCULAR VOLUME 94.7 fL (80.0-94.0); PLATELET 58 x1000/uL (130-400); RED BLOOD CELL COUNT 2.27 mill/uL (4.7-6.1); RED CELL DISTRIBUTION WIDTH 14.7 % (11.6-14.6)
[2019-07-03] MEDS: FAMOTIDINE 20MG/2ML VIAL IV SCH (20:40)
[2019-07-03] MEDS: DEXT 5%/0.45% NACL 1000ML 1,000 ML IV SCH (21:25)
[2019-07-04] VITALS (90 sets, daily range): BP systolic 87–155; BP diastolic 17–91
[2019-07-04] MEDS: IPRATROPIUM/ALBUTEROL 0.5-3(2.5)MG/3ML NEB HHN SCH ×6 (00:33→20:26)
[2019-07-04] MEDS: LORAZEPAM 2MG/ML CPJ IV PRN (02:16)
[2019-07-04 05:43] LABS: BASOPHILS % 0.1 % (0.0-2.0); HEMATOCRIT. 21.7 % (42.0-52.0); HEMOGLOBIN. 7.4 g/dL (14.0-18.0); LYMPHOCYTES % 9.1 % (20.0-50.0); MEAN CORPUSCULAR HEMOGLOBIN 32.5 pg (28.0-32.0); MEAN CORPUSCULAR VOLUME 94.7 fL (80.0-94.0); MEAN PLATELET VOLUME 11.3 fl (7.4-10.4); MONOCYTES % 8.5 % (2.0-8.0); NEUTROPHILS % 82.3 % (40.0-76.0); PLATELET 55 x1000/uL (130-400); RED BLOOD CELL COUNT 2.29 mill/uL (4.7-6.1); RED CELL DISTRIBUTION WIDTH 14.6 % (11.6-14.6)
[2019-07-04 05:56] LABS: CHLORIDE 101 mEq/L (98-107)
[2019-07-04] MEDS: BUDESONIDE 0.5MG/2ML NEB HHN SCH ×2 (08:58→20:26)
[2019-07-04] MEDS: FOLIC ACID 1MG TABLET PO SCH (09:40)
[2019-07-04] MEDS: METHYLPREDNISOLONE SOD SUCC 40 MG/ML VIAL IV SCH ×2 (09:40→18:25)
[2019-07-04 10:14] LABS: BG BASE EXCESS 2.1 mmol/L (-2.0-2.0); BG CARBOXYHEMOGLOBIN 0.2 % (0.5-1.5); BG DEOXYHEMOGLOBIN 1.7 % (0.0-5.0); BG FRACTION INSPIRED OXYGEN 40; BG HCO3 ACT 25.8 mmol/L (22.0-26.0); BG METHEMOGLOBIN 0.7 % (0.0-1.5); BG OXYGEN SATURATION 98.3 % (92.0-98.5); BG OXYHEMOGLOBIN 97.4 % (94.0-97.0); BG PCO2 36.3 mmHg (35.0-45.0); BG PH 7.469 (7.350-7.450); BG PRESSURE SUPPORT 12; BG SAMPLE SITE RIGHT RADIAL; BG TIDAL VOLUME(mL) 500 mL; BG TOTAL HEMOGLOBIN 9.3 g/dL (12.0-18.0); BG VENT MODE VENT - SIMV; BG VENT RATE 12 set
[2019-07-04] MEDS ORDERED: BISACODYL 10MG SUPP PR NR (10:15)
[2019-07-04] MEDS ORDERED: DOCUSATE SODIUM 250MG CAPSULE PO SCH (10:30)
[2019-07-04 12:01] LABS: TOTAL IRON BINDING CAPACITY 141 ug/dL (250-450)
[2019-07-04] MEDS: FAMOTIDINE 20MG/2ML VIAL IV SCH (20:11)
[2019-07-04] MEDS: DEXT 5%/0.45% NACL 1000ML 1,000 ML IV SCH (23:39)
[2019-07-05] VITALS (93 sets, daily range): BP systolic 97–138; BP diastolic 59–109
[2019-07-05] MEDS: IPRATROPIUM/ALBUTEROL 0.5-3(2.5)MG/3ML NEB HHN SCH ×6 (00:38→21:08)
[2019-07-05 05:58] LABS: BASOPHILS % 0.1 % (0.0-2.0); HEMOGLOBIN. 7.9 g/dL (14.0-18.0); LYMPHOCYTES % 12.7 % (20.0-50.0); MEAN CORPUSCULAR HEMOGLOBIN 32.3 pg (28.0-32.0); MEAN PLATELET VOLUME 11.4 fl (7.4-10.4); MONOCYTES % 9.7 % (2.0-8.0); NEUTROPHILS % 77.5 % (40.0-76.0); PLATELET 72 x1000/uL (130-400); RED BLOOD CELL COUNT 2.45 mill/uL (4.7-6.1); RED CELL DISTRIBUTION WIDTH 14.8 % (11.6-14.6)
[2019-07-05] MEDS: MORPHINE SULFATE 2 MG/ML CPJ (NOT FOR IM USE) IV PRN (06:05)
[2019-07-05 06:15] LABS: CHLORIDE 100 mEq/L (98-107)
[2019-07-05] MEDS: BUDESONIDE 0.5MG/2ML NEB HHN SCH ×2 (08:51→21:07)
[2019-07-05] MEDS ORDERED: KCL 20MEQ/100ML PREMIX 100 ML IV SCH (09:00)
[2019-07-05] MEDS: FOLIC ACID 1MG TABLET PO SCH (10:13)
[2019-07-05] MEDS: DOCUSATE SODIUM SUGAR FREE 100MG/10ML UDC NG SCH (10:14)
[2019-07-05] MEDS: PREDNISONE 20MG TABLET PO SCH (12:22)
[2019-07-05 12:34] LABS: BG BASE EXCESS 8.9 mmol/L (-2.0-2.0); BG CARBOXYHEMOGLOBIN 0.3 % (0.5-1.5); BG DEOXYHEMOGLOBIN 12.4 % (0.0-5.0); BG FRACTION INSPIRED OXYGEN 40; BG HCO3 ACT 32.9 mmol/L (22.0-26.0); BG METHEMOGLOBIN 0.2 % (0.0-1.5); BG OXYGEN SATURATION 87.5 % (92.0-98.5); BG OXYHEMOGLOBIN 87.1 % (94.0-97.0); BG PH 7.501 (7.350-7.450); BG PO2 50.9 mmHg (75.0-100.0); BG PRESSURE SUPPORT 8; BG SAMPLE SITE RIGHT RADIAL; BG TOTAL HEMOGLOBIN 8.3 g/dL (12.0-18.0); BG VENT MODE VENT - CPAP
[2019-07-05 14:30] LABS: BG BASE EXCESS 7.8 mmol/L (-2.0-2.0); BG CARBOXYHEMOGLOBIN 0.3 % (0.5-1.5); BG DEOXYHEMOGLOBIN 10.8 % (0.0-5.0); BG FRACTION INSPIRED OXYGEN 40; BG HCO3 ACT 31.4 mmol/L (22.0-26.0); BG OXYGEN SATURATION 89.2 % (92.0-98.5); BG OXYHEMOGLOBIN 88.9 % (94.0-97.0); BG PCO2 39.6 mmHg (35.0-45.0); BG PH 7.517 (7.350-7.450); BG PO2 52.8 mmHg (75.0-100.0); BG PRESSURE SUPPORT 8; BG SAMPLE SITE RIGHT RADIAL; BG TOTAL HEMOGLOBIN 8.1 g/dL (12.0-18.0); BG VENT MODE VENT - CPAP
[2019-07-05] MEDS ORDERED: DEXTROSE 50% WATER 50ML SYRINGE IV PRN (18:30)
[2019-07-05] MEDS: INSULIN LISPRO 100 UNITS/ML SUBCUT SCH (19:23)
[2019-07-05] MEDS: BLOOD SUGAR DIAGNOSTIC STRIP TEST SCH (19:23)
[2019-07-05] MEDS: FAMOTIDINE 20MG/2ML VIAL IV SCH (21:33)
[2019-07-05] MEDS: DEXT 5%/0.45% NACL 1000ML 1,000 ML IV SCH ×2 (21:33→23:10)
[2019-07-06] VITALS (76 sets, daily range): BP systolic 110–145; BP diastolic 45–111
[2019-07-06] MEDS: BLOOD SUGAR DIAGNOSTIC STRIP TEST SCH ×4 (00:20→18:28)
[2019-07-06] MEDS: INSULIN LISPRO 100 UNITS/ML SUBCUT SCH ×4 (00:20→19:53)
[2019-07-06] MEDS: IPRATROPIUM/ALBUTEROL 0.5-3(2.5)MG/3ML NEB HHN SCH ×5 (00:40→20:19)
[2019-07-06 06:28] LABS: CHLORIDE 101 mEq/L (98-107)
[2019-07-06 06:35] LABS: BASOPHILS % 0.3 % (0.0-2.0); EOSINOPHILS % 0.1 % (0.0-5.0); HEMATOCRIT. 23.7 % (42.0-52.0); HEMOGLOBIN. 8.2 g/dL (14.0-18.0); LYMPHOCYTES % 17.2 % (20.0-50.0); MEAN CORPUSCULAR HEMOGLOBIN 32.7 pg (28.0-32.0); MEAN CORPUSCULAR VOLUME 94.8 fL (80.0-94.0); MONOCYTES % 9.4 % (2.0-8.0); PLATELET 87 x1000/uL (130-400); RED CELL DISTRIBUTION WIDTH 14.7 % (11.6-14.6)
[2019-07-06] MEDS: BUDESONIDE 0.5MG/2ML NEB HHN SCH ×2 (08:46→20:20)
[2019-07-06 08:50] LABS: BG BASE EXCESS 10.3 mmol/L (-2.0-2.0); BG CARBOXYHEMOGLOBIN 0.2 % (0.5-1.5); BG DEOXYHEMOGLOBIN 13.8 % (0.0-5.0); BG FRACTION INSPIRED OXYGEN 28; BG HCO3 ACT 33.3 mmol/L (22.0-26.0); BG METHEMOGLOBIN 0.2 % (0.0-1.5); BG OXYGEN SATURATION 86.1 % (92.0-98.5); BG OXYHEMOGLOBIN 85.8 % (94.0-97.0); BG PCO2 38.1 mmHg (35.0-45.0); BG PO2 47.4 mmHg (75.0-100.0); BG SAMPLE SITE RIGHT RADIAL; BG TOTAL HEMOGLOBIN 8.6 g/dL (12.0-18.0); BG VENT MODE NASAL CANNULA
[2019-07-06] MEDS: DOCUSATE SODIUM SUGAR FREE 100MG/10ML UDC NG SCH (09:00)
[2019-07-06] MEDS ORDERED: POTASSIUM CHLORIDE 20MEQ TABLET SR PO SCH (09:00)
[2019-07-06] MEDS ORDERED: POTASSIUM CHLORIDE 20MEQ/PACKET NG NR (09:15)
[2019-07-06] MEDS: FOLIC ACID 1MG TABLET PO SCH (12:18)
[2019-07-06] MEDS: PREDNISONE 20MG TABLET PO SCH (12:36)
[2019-07-06 12:53] LABS: INR 1.3; PARTIAL THROMBOPLASTIN TIME 25.7 sec (23.4-31.0); PROTHROMBIN TIME 13.1 sec (9.6-11.0)
[2019-07-06] MEDS ORDERED: LIDOCAINE HCL 1% 20ML VIAL (Pyxis) INJ ONE (13:23)
[2019-07-06] MEDS ORDERED: SIMETHICONE/SOD BICARB/CIT AC 1 EACH GRAN.EF.PK ONE (13:24)
[2019-07-06] MEDS ORDERED: SODIUM BICARBONATE 4% (2.4MEQ) 5ML VIAL IV ONE (13:24)
[2019-07-06] MEDS: DEXT 5%/0.45% NACL 1000ML 1,000 ML IV SCH (20:42)
[2019-07-06] MEDS: FAMOTIDINE 20MG/2ML VIAL IV SCH (21:02)
[2019-07-06] MEDS: MORPHINE SULFATE 2 MG/ML CPJ (NOT FOR IM USE) IV PRN (21:02)
[2019-07-07] VITALS (51 sets, daily range): BP systolic 85–194; BP diastolic 40–114
[2019-07-07] MEDS: INSULIN LISPRO 100 UNITS/ML SUBCUT SCH ×4 (00:06→18:39)
[2019-07-07] MEDS: BLOOD SUGAR DIAGNOSTIC STRIP TEST SCH ×4 (00:06→18:14)
[2019-07-07] MEDS: LORAZEPAM 2MG/ML CPJ IV PRN (00:12)
[2019-07-07] MEDS: IPRATROPIUM/ALBUTEROL 0.5-3(2.5)MG/3ML NEB HHN SCH ×6 (00:23→20:05)
[2019-07-07] MEDS: ACETYLCYSTEINE 100MG/ML 10% VIAL 4ML INH SCH ×3 (00:23→15:33)
[2019-07-07 06:00] LABS: BASOPHILS % 0.3 % (0.0-2.0); EOSINOPHILS % 0.1 % (0.0-5.0); HEMATOCRIT. 26.4 % (42.0-52.0); MEAN CORPUSCULAR HEMOGLOBIN 32.5 pg (28.0-32.0); MEAN CORPUSCULAR VOLUME 95.7 fL (80.0-94.0); MEAN PLATELET VOLUME 11.3 fl (7.4-10.4); MONOCYTES % 9.2 % (2.0-8.0); NEUTROPHILS % 71.4 % (40.0-76.0); PLATELET 107 x1000/uL (130-400); RED BLOOD CELL COUNT 2.76 mill/uL (4.7-6.1); RED CELL DISTRIBUTION WIDTH 14.7 % (11.6-14.6)
[2019-07-07 06:12] LABS: CHLORIDE 100 mEq/L (98-107)
[2019-07-07] MEDS: BUDESONIDE 0.5MG/2ML NEB HHN SCH (07:40)
[2019-07-07] MEDS: DOCUSATE SODIUM SUGAR FREE 100MG/10ML UDC NG SCH (09:00)
[2019-07-07 09:54] LABS: BG BASE EXCESS 9.3 mmol/L (-2.0-2.0); BG CARBOXYHEMOGLOBIN 1.3 % (0.5-1.5); BG DEOXYHEMOGLOBIN 5.9 % (0.0-5.0); BG FRACTION INSPIRED OXYGEN 40; BG HCO3 ACT 32.6 mmol/L (22.0-26.0); BG METHEMOGLOBIN 0.2 % (0.0-1.5); BG OXYHEMOGLOBIN 92.6 % (94.0-97.0); BG PCO2 39.3 mmHg (35.0-45.0); BG PH 7.537 (7.350-7.450); BG PO2 77.5 mmHg (75.0-100.0); BG SAMPLE SITE RIGHT RADIAL; BG TOTAL HEMOGLOBIN 7.8 g/dL (12.0-18.0); BG VENT MODE NASAL CANNULA
[2019-07-07] MEDS: FOLIC ACID 1MG TABLET PO SCH (10:13)
[2019-07-07] MEDS: PREDNISONE 20MG TABLET PO SCH (10:13)
[2019-07-07] MEDS: ENOXAPARIN 80MG/0.8ML SYR SUBCUT SCH ×2 (10:13→23:53)
[2019-07-07] MEDS: DEXT 5%/0.45% NACL 1000ML 1,000 ML IV SCH (17:28)
[2019-07-07] MEDS: FAMOTIDINE 20MG/2ML VIAL IV SCH (23:54)
[2019-07-08] VITALS (11 sets, daily range): BP systolic 103–125; BP diastolic 16–83
[2019-07-08] MEDS: INSULIN LISPRO 100 UNITS/ML SUBCUT SCH ×5 (01:00→23:56)
[2019-07-08] MEDS: BLOOD SUGAR DIAGNOSTIC STRIP TEST SCH ×5 (01:06→23:52)
[2019-07-08] MEDS: IPRATROPIUM/ALBUTEROL 0.5-3(2.5)MG/3ML NEB HHN SCH ×6 (02:00→21:02)
[2019-07-08 07:12] LABS: BASOPHILS % 0.2 % (0.0-2.0); EOSINOPHILS % 0.1 % (0.0-5.0); HEMATOCRIT. 22.2 % (42.0-52.0); HEMOGLOBIN. 7.7 g/dL (14.0-18.0); LYMPHOCYTES % 20.3 % (20.0-50.0); MEAN CORPUSCULAR HEMOGLOBIN 32.6 pg (28.0-32.0); MEAN CORPUSCULAR VOLUME 94.5 fL (80.0-94.0); MEAN PLATELET VOLUME 10.6 fl (7.4-10.4); MONOCYTES % 9.1 % (2.0-8.0); NEUTROPHILS % 70.3 % (40.0-76.0); PLATELET 123 x1000/uL (130-400); RED BLOOD CELL COUNT 2.35 mill/uL (4.7-6.1); RED CELL DISTRIBUTION WIDTH 14.6 % (11.6-14.6)
[2019-07-08 08:15] LABS: CHLORIDE 98 mEq/L (98-107)
[2019-07-08] MEDS: BUDESONIDE 0.5MG/2ML NEB HHN SCH ×3 (08:55→21:02)
[2019-07-08] MEDS: ACETYLCYSTEINE 100MG/ML 10% VIAL 4ML INH SCH ×3 (08:55→16:25)
[2019-07-08] MEDS: DOCUSATE SODIUM SUGAR FREE 100MG/10ML UDC NG SCH (09:00)
[2019-07-08] MEDS: ENOXAPARIN 80MG/0.8ML SYR SUBCUT SCH ×2 (09:00→20:03)
[2019-07-08] MEDS: FOLIC ACID 1MG TABLET PO SCH (11:09)
[2019-07-08] MEDS: PREDNISONE 20MG TABLET PO SCH (11:10)
[2019-07-08] MEDS ORDERED: POTASSIUM CHLORIDE 20MEQ/PACKET PO SCH (14:45)
[2019-07-08] MEDS: FAMOTIDINE 20MG/2ML VIAL IV SCH (20:03)
[2019-07-09] VITALS (12 sets, daily range): BP systolic 108–129; BP diastolic 61–80
[2019-07-09] MEDS: ACETYLCYSTEINE 100MG/ML 10% VIAL 4ML INH SCH ×2 (00:06→17:07)
[2019-07-09] MEDS: IPRATROPIUM/ALBUTEROL 0.5-3(2.5)MG/3ML NEB HHN SCH ×6 (03:53→21:14)
[2019-07-09] MEDS: BLOOD SUGAR DIAGNOSTIC STRIP TEST SCH ×3 (05:39→18:25)
[2019-07-09] MEDS: INSULIN LISPRO 100 UNITS/ML SUBCUT SCH ×3 (05:39→18:25)
[2019-07-09 07:56] LABS: BASOPHILS % 0.3 % (0.0-2.0); EOSINOPHILS % 0.2 % (0.0-5.0); HEMATOCRIT. 26.4 % (42.0-52.0); HEMOGLOBIN. 8.9 g/dL (14.0-18.0); LYMPHOCYTES % 20.4 % (20.0-50.0); MEAN CORPUSCULAR HEMOGLOBIN 32.4 pg (28.0-32.0); MEAN CORPUSCULAR VOLUME 95.8 fL (80.0-94.0); MEAN PLATELET VOLUME 10.3 fl (7.4-10.4); MONOCYTES % 7.9 % (2.0-8.0); NEUTROPHILS % 71.2 % (40.0-76.0); PLATELET 175 x1000/uL (130-400); RED BLOOD CELL COUNT 2.76 mill/uL (4.7-6.1)
[2019-07-09] MEDS: DEXT 5%/0.45% NACL 1000ML 1,000 ML IV SCH (08:15)
[2019-07-09 08:30] LABS: CHLORIDE 98 mEq/L (98-107)
[2019-07-09 08:35] LABS: PHOSPHORUS 2.8 mg/dL (2.5-4.9)
[2019-07-09] MEDS: ENOXAPARIN 80MG/0.8ML SYR SUBCUT SCH ×2 (09:25→21:15)
[2019-07-09] MEDS: PREDNISONE 20MG TABLET PO SCH (09:26)
[2019-07-09] MEDS: FOLIC ACID 1MG TABLET PO SCH (09:26)
[2019-07-09] MEDS: DOCUSATE SODIUM SUGAR FREE 100MG/10ML UDC NG SCH (09:26)
[2019-07-09] MEDS ORDERED: MAGNESIUM 2 G PREMIX 50 ML IV NR (17:00)
[2019-07-09] MEDS: BUDESONIDE 0.5MG/2ML NEB HHN SCH (21:13)
[2019-07-09] MEDS: FAMOTIDINE 20MG/2ML VIAL IV SCH (21:14)
[2019-07-10] VITALS (12 sets, daily range): BP systolic 117–133; BP diastolic 66–103
[2019-07-10] MEDS: INSULIN LISPRO 100 UNITS/ML SUBCUT SCH ×4 (01:00→18:29)
[2019-07-10] MEDS: BLOOD SUGAR DIAGNOSTIC STRIP TEST SCH ×4 (01:12→18:29)
[2019-07-10] MEDS: IPRATROPIUM/ALBUTEROL 0.5-3(2.5)MG/3ML NEB HHN SCH ×6 (01:31→20:25)
[2019-07-10] MEDS: ACETYLCYSTEINE 100MG/ML 10% VIAL 4ML INH SCH ×3 (01:31→16:44)
[2019-07-10] MEDS: DEXT 5%/0.45% NACL 1000ML 1,000 ML IV SCH (06:05)
[2019-07-10 07:53] LABS: BASOPHILS % 0.3 % (0.0-2.0); EOSINOPHILS % 0.3 % (0.0-5.0); HEMOGLOBIN. 9.6 g/dL (14.0-18.0); LYMPHOCYTES % 19.2 % (20.0-50.0); MEAN CORPUSCULAR HEMOGLOBIN 32.7 pg (28.0-32.0); MEAN CORPUSCULAR VOLUME 95.7 fL (80.0-94.0); MEAN PLATELET VOLUME 10.2 fl (7.4-10.4); MONOCYTES % 8.2 % (2.0-8.0); PLATELET 222 x1000/uL (130-400); RED BLOOD CELL COUNT 2.93 mill/uL (4.7-6.1); RED CELL DISTRIBUTION WIDTH 15.4 % (11.6-14.6)
[2019-07-10 08:09] LABS: CHLORIDE 96 mEq/L (98-107)
[2019-07-10] MEDS: BUDESONIDE 0.5MG/2ML NEB HHN SCH ×2 (08:44→20:26)
[2019-07-10] MEDS: FOLIC ACID 1MG TABLET PO SCH (09:59)
[2019-07-10] MEDS: PREDNISONE 20MG TABLET PO SCH (09:59)
[2019-07-10] MEDS: DOCUSATE SODIUM SUGAR FREE 100MG/10ML UDC NG SCH (09:59)
[2019-07-10] MEDS: ENOXAPARIN 80MG/0.8ML SYR SUBCUT SCH (09:59)
[2019-07-10] MEDS ORDERED: POTASSIUM CHLORIDE 20MEQ/PACKET PO NR (10:15)
[2019-07-10] MEDS: PSYLLIUM SEED PACKET PO SCH ×3 (10:32→17:18)
[2019-07-10] MEDS ORDERED: ENOXAPARIN 60MG/0.6ML SYR SUBCUT SCH (14:53)
[2019-07-10] MEDS: FAMOTIDINE 20MG TABLET PO SCH (21:58)
[2019-07-10] MEDS: ENOXAPARIN 60MG/0.6ML SYR SUBCUT SCH (21:59)
[2019-07-11] VITALS (12 sets, daily range): BP systolic 106–149; BP diastolic 59–96
[2019-07-11] MEDS: ACETYLCYSTEINE 100MG/ML 10% VIAL 4ML INH SCH ×2 (00:29→08:33)
[2019-07-11] MEDS: IPRATROPIUM/ALBUTEROL 0.5-3(2.5)MG/3ML NEB HHN SCH ×6 (00:29→20:02)
[2019-07-11] MEDS: BLOOD SUGAR DIAGNOSTIC STRIP TEST SCH ×2 (00:44→06:45)
[2019-07-11] MEDS: INSULIN LISPRO 100 UNITS/ML SUBCUT SCH ×2 (01:00→06:45)
[2019-07-11 05:38] LABS: CHLORIDE 97 mEq/L (98-107)
[2019-07-11 05:47] LABS: BASOPHILS % 0.4 % (0.0-2.0); EOSINOPHILS % 0.5 % (0.0-5.0); HEMATOCRIT. 26.2 % (42.0-52.0); HEMOGLOBIN. 8.9 g/dL (14.0-18.0); LYMPHOCYTES % 25.3 % (20.0-50.0); MEAN CORPUSCULAR HEMOGLOBIN 32.7 pg (28.0-32.0); MEAN PLATELET VOLUME 9.8 fl (7.4-10.4); MONOCYTES % 10.2 % (2.0-8.0); NEUTROPHILS % 63.6 % (40.0-76.0); PLATELET 281 x1000/uL (130-400); RED BLOOD CELL COUNT 2.73 mill/uL (4.7-6.1); RED CELL DISTRIBUTION WIDTH 15.7 % (11.6-14.6)
[2019-07-11] MEDS: BUDESONIDE 0.5MG/2ML NEB HHN SCH ×2 (08:33→20:02)
[2019-07-11] MEDS: DOCUSATE SODIUM SUGAR FREE 100MG/10ML UDC NG SCH (09:00)
[2019-07-11] MEDS: FOLIC ACID 1MG TABLET PO SCH (10:13)
[2019-07-11] MEDS: PSYLLIUM SEED PACKET PO SCH ×3 (10:13→18:38)
[2019-07-11] MEDS: PREDNISONE 20MG TABLET PO SCH (10:14)
[2019-07-11] MEDS: ENOXAPARIN 60MG/0.6ML SYR SUBCUT SCH ×2 (10:15→20:50)
[2019-07-11] MEDS ORDERED: DIATR MEGLU/DIATRIZOATE SOLN 30ML PO SCH (10:45)
[2019-07-11] MEDS ORDERED: IOHEXOL-300 100 ML BOTTLE ONE (17:30)
[2019-07-11] MEDS: FAMOTIDINE 20MG TABLET PO SCH (20:50)
[2019-07-12] MEDS: IPRATROPIUM/ALBUTEROL 0.5-3(2.5)MG/3ML NEB HHN SCH ×3 (00:13→20:30)
[2019-07-12 03:45] VITALS: BP 120/73
[2019-07-12 06:44] LABS: BASOPHILS % 0.4 % (0.0-2.0); EOSINOPHILS % 0.6 % (0.0-5.0); HEMATOCRIT. 25.7 % (42.0-52.0); HEMOGLOBIN. 8.9 g/dL (14.0-18.0); LYMPHOCYTES % 21.7 % (20.0-50.0); MEAN CORPUSCULAR HEMOGLOBIN 32.9 pg (28.0-32.0); MEAN CORPUSCULAR VOLUME 95.2 fL (80.0-94.0); MONOCYTES % 9.4 % (2.0-8.0); NEUTROPHILS % 67.9 % (40.0-76.0); RED CELL DISTRIBUTION WIDTH 15.4 % (11.6-14.6)
[2019-07-12 06:48] LABS: CHLORIDE 96 mEq/L (98-107)
[2019-07-12 08:00] VITALS: BP 137/84
[2019-07-12] MEDS: FOLIC ACID 1MG TABLET PO SCH (08:16)
[2019-07-12] MEDS: PREDNISONE 20MG TABLET PO SCH (08:16)
[2019-07-12] MEDS: DOCUSATE SODIUM SUGAR FREE 100MG/10ML UDC NG SCH (08:16)
[2019-07-12] MEDS: ENOXAPARIN 60MG/0.6ML SYR SUBCUT SCH ×2 (08:18→22:08)
[2019-07-12] MEDS: PSYLLIUM SEED PACKET PO SCH ×3 (09:56→17:00)
[2019-07-12] MEDS ORDERED: VANCOMYCIN 1 G PREMIX 200 ML IV SCH (10:00)
[2019-07-12] MEDS: ONDANSETRON HCL 4MG/2ML INJ IV PRN (10:33)
[2019-07-12] MEDS: PIPERACILLIN/TAZOBACTAM 3.375 G in DEXT 5% WATER 100 ML IV SCH ×3 (10:36→21:57)
[2019-07-12 12:00] VITALS: BP 122/81
[2019-07-12] MEDS: METOPROLOL TARTRATE 25MG TABLET PO SCH ×2 (12:07→21:58)
[2019-07-12 16:00] VITALS: BP 115/69
[2019-07-12] MEDS ORDERED: VANCOMYCIN 750 MG PREMIX 150 ML IV SCH (18:00)
[2019-07-12 20:00] VITALS: BP 118/66
[2019-07-12] MEDS: BUDESONIDE 0.5MG/2ML NEB HHN SCH (20:29)
[2019-07-12] MEDS: VANCOMYCIN 750 MG in DEXT 5% WATER 250 ML IV SCH (21:57)
[2019-07-12] MEDS: FAMOTIDINE 20MG TABLET PO SCH (21:57)
[2019-07-12 22:00] VITALS: BP 112/87
[2019-07-13] VITALS (20 sets, daily range): BP systolic 101–137; BP diastolic 58–86
[2019-07-13] MEDS: IPRATROPIUM/ALBUTEROL 0.5-3(2.5)MG/3ML NEB HHN SCH ×6 (00:13→20:07)
[2019-07-13] MEDS: VANCOMYCIN 750 MG in DEXT 5% WATER 250 ML IV SCH (06:12)
[2019-07-13] MEDS: PIPERACILLIN/TAZOBACTAM 3.375 G in DEXT 5% WATER 100 ML IV SCH ×4 (06:13→23:19)
[2019-07-13 07:07] LABS: BASOPHILS % 0.4 % (0.0-2.0); EOSINOPHILS % 0.4 % (0.0-5.0); HEMATOCRIT. 23.8 % (42.0-52.0); HEMOGLOBIN. 8.2 g/dL (14.0-18.0); LYMPHOCYTES % 19.5 % (20.0-50.0); MEAN CORPUSCULAR HEMOGLOBIN 32.8 pg (28.0-32.0); MEAN CORPUSCULAR VOLUME 95.1 fL (80.0-94.0); MEAN PLATELET VOLUME 8.9 fl (7.4-10.4); MONOCYTES % 12.5 % (2.0-8.0); NEUTROPHILS % 67.2 % (40.0-76.0); PLATELET 367 x1000/uL (130-400); RED BLOOD CELL COUNT 2.51 mill/uL (4.7-6.1); RED CELL DISTRIBUTION WIDTH 15.7 % (11.6-14.6)
[2019-07-13 07:42] LABS: CHLORIDE 97 mEq/L (98-107)
[2019-07-13] MEDS: BUDESONIDE 0.5MG/2ML NEB HHN SCH ×2 (08:58→20:07)
[2019-07-13] MEDS: ENOXAPARIN 60MG/0.6ML SYR SUBCUT SCH ×2 (09:00→21:00)
[2019-07-13] MEDS: METOPROLOL TARTRATE 25MG TABLET PO SCH ×2 (09:00→21:31)
[2019-07-13] MEDS ORDERED: LIDOCAINE HCL 1% 20ML VIAL (Pyxis) INJ ONE (11:07)
[2019-07-13] MEDS ORDERED: SODIUM BICARBONATE 4% (2.4MEQ) 5ML VIAL IV ONE (11:08)
[2019-07-13] MEDS ORDERED: FENTANYL CITRATE/PF 50MCG/ML 2ML VIAL ONE (11:32)
[2019-07-13] MEDS ORDERED: FENTANYL CITRATE/PF 50MCG/ML 2ML VIAL IV ONE (12:45)
[2019-07-13] MEDS: PSYLLIUM SEED PACKET PO SCH ×3 (13:00→17:00)
[2019-07-13] MEDS: DOCUSATE SODIUM SUGAR FREE 100MG/10ML UDC NG SCH (13:59)
[2019-07-13] MEDS: PREDNISONE 20MG TABLET PO SCH (14:00)
[2019-07-13] MEDS: FOLIC ACID 1MG TABLET PO SCH (14:00)
[2019-07-13] MEDS: VANCOMYCIN 750 MG PREMIX 150 ML IV SCH ×2 (14:27→21:30)
[2019-07-13] MEDS ORDERED: POTASSIUM CHLORIDE 20MEQ/PACKET PO NR (20:45)
[2019-07-13] MEDS: FAMOTIDINE 20MG TABLET PO SCH (21:31)
[2019-07-14] VITALS: BP 128/87
[2019-07-14] MEDS: IPRATROPIUM/ALBUTEROL 0.5-3(2.5)MG/3ML NEB HHN SCH ×6 (00:28→20:02)
[2019-07-14 04:00] VITALS: BP 127/68
[2019-07-14] MEDS: PIPERACILLIN/TAZOBACTAM 3.375 G in DEXT 5% WATER 100 ML IV SCH ×4 (04:25→21:51)
[2019-07-14 06:22] LABS: BASOPHILS % 0.4 % (0.0-2.0); EOSINOPHILS % 0.1 % (0.0-5.0); HEMATOCRIT. 33.9 % (42.0-52.0); HEMOGLOBIN. 11.4 g/dL (14.0-18.0); LYMPHOCYTES % 17.2 % (20.0-50.0); MEAN CORPUSCULAR HEMOGLOBIN 32.1 pg (28.0-32.0); MEAN CORPUSCULAR VOLUME 95.8 fL (80.0-94.0); MEAN PLATELET VOLUME 8.7 fl (7.4-10.4); MONOCYTES % 6.1 % (2.0-8.0); NEUTROPHILS % 76.2 % (40.0-76.0); PLATELET 502 x1000/uL (130-400); RED BLOOD CELL COUNT 3.54 mill/uL (4.7-6.1); RED CELL DISTRIBUTION WIDTH 16.2 % (11.6-14.6)
[2019-07-14] MEDS: VANCOMYCIN 750 MG PREMIX 150 ML IV SCH ×3 (06:25→21:52)
[2019-07-14 08:00] VITALS: BP 136/91
[2019-07-14 08:13] LABS: CHLORIDE 95 mEq/L (98-107)
[2019-07-14] MEDS: BUDESONIDE 0.5MG/2ML NEB HHN SCH ×2 (08:16→20:02)
[2019-07-14] MEDS: PSYLLIUM SEED PACKET PO SCH ×3 (09:10→16:03)
[2019-07-14] MEDS: METOPROLOL TARTRATE 25MG TABLET PO SCH ×2 (09:11→21:52)
[2019-07-14] MEDS: PREDNISONE 20MG TABLET PO SCH (09:11)
[2019-07-14] MEDS: ENOXAPARIN 60MG/0.6ML SYR SUBCUT SCH ×2 (09:11→21:53)
[2019-07-14] MEDS: FOLIC ACID 1MG TABLET PO SCH (09:11)
[2019-07-14] MEDS: DOCUSATE SODIUM SUGAR FREE 100MG/10ML UDC NG SCH (09:12)
[2019-07-14 12:00] VITALS: BP 138/90
[2019-07-14] MEDS: MORPHINE SULFATE 2 MG/ML CPJ (NOT FOR IM USE) IV PRN (13:55)
[2019-07-14 16:00] VITALS: BP 121/89
[2019-07-14 20:00] VITALS: BP 133/78
[2019-07-14] MEDS: FAMOTIDINE 20MG TABLET PO SCH (21:52)
[2019-07-15] VITALS: BP 127/77
[2019-07-15] MEDS: IPRATROPIUM/ALBUTEROL 0.5-3(2.5)MG/3ML NEB HHN SCH ×6 (00:05→20:17)
[2019-07-15] MEDS: PIPERACILLIN/TAZOBACTAM 3.375 G in DEXT 5% WATER 100 ML IV SCH ×4 (03:22→21:03)
[2019-07-15 04:00] VITALS: BP 144/86
[2019-07-15] MEDS: VANCOMYCIN 750 MG PREMIX 150 ML IV SCH ×3 (05:06→21:03)
[2019-07-15 06:40] LABS: CHLORIDE 94 mEq/L (98-107)
[2019-07-15 06:46] LABS: BASOPHILS % 0.4 % (0.0-2.0); HEMATOCRIT. 28.7 % (42.0-52.0); LYMPHOCYTES % 11.9 % (20.0-50.0); MEAN CORPUSCULAR HEMOGLOBIN 33.1 pg (28.0-32.0); MEAN CORPUSCULAR VOLUME 95.2 fL (80.0-94.0); MEAN PLATELET VOLUME 9.4 fl (7.4-10.4); MONOCYTES % 3.6 % (2.0-8.0); NEUTROPHILS % 84.1 % (40.0-76.0); PLATELET 415 x1000/uL (130-400); RED BLOOD CELL COUNT 3.02 mill/uL (4.7-6.1); RED CELL DISTRIBUTION WIDTH 16.2 % (11.6-14.6)
[2019-07-15 08:00] VITALS: BP 136/83
[2019-07-15] MEDS: FOLIC ACID 1MG TABLET PO SCH (08:52)
[2019-07-15] MEDS: DOCUSATE SODIUM SUGAR FREE 100MG/10ML UDC NG SCH (08:52)
[2019-07-15] MEDS: PREDNISONE 20MG TABLET PO SCH (08:52)
[2019-07-15] MEDS: METOPROLOL TARTRATE 25MG TABLET PO SCH ×2 (08:52→20:48)
[2019-07-15] MEDS: ENOXAPARIN 60MG/0.6ML SYR SUBCUT SCH ×2 (08:53→20:49)
[2019-07-15] MEDS: PSYLLIUM SEED PACKET PO SCH ×3 (08:54→17:24)
[2019-07-15] MEDS: BUDESONIDE 0.5MG/2ML NEB HHN SCH ×2 (10:10→20:16)
[2019-07-15 12:00] VITALS: BP 142/68
[2019-07-15] MEDS: DEXT 5%/0.9% NACL 1,000 ML IV SCH (13:37)
[2019-07-15 15:56] VITALS: BP 139/55
[2019-07-15 20:00] VITALS: BP 151/84
[2019-07-15] MEDS: FAMOTIDINE 20MG TABLET PO SCH (20:48)
[2019-07-16] VITALS: BP 130/75
[2019-07-16] MEDS: IPRATROPIUM/ALBUTEROL 0.5-3(2.5)MG/3ML NEB HHN SCH ×6 (01:16→20:20)
[2019-07-16] MEDS: DEXT 5%/0.9% NACL 1,000 ML IV SCH ×2 (03:13→18:06)
[2019-07-16] MEDS: PIPERACILLIN/TAZOBACTAM 3.375 G in DEXT 5% WATER 100 ML IV SCH ×4 (03:14→21:25)
[2019-07-16 04:00] VITALS: BP 96/23
[2019-07-16] MEDS: VANCOMYCIN 750 MG PREMIX 150 ML IV SCH (05:11)
[2019-07-16] MEDS: ONDANSETRON HCL 4MG/2ML INJ IV PRN (07:04)
[2019-07-16] MEDS: BUDESONIDE 0.5MG/2ML NEB HHN SCH ×2 (07:39→20:17)
[2019-07-16 07:47] LABS: BASOPHILS % 0.4 % (0.0-2.0); EOSINOPHILS % 0.2 % (0.0-5.0); HEMATOCRIT. 28.7 % (42.0-52.0); HEMOGLOBIN. 9.8 g/dL (14.0-18.0); LYMPHOCYTES % 18.3 % (20.0-50.0); MEAN CORPUSCULAR HEMOGLOBIN 32.7 pg (28.0-32.0); MEAN CORPUSCULAR VOLUME 95.2 fL (80.0-94.0); MEAN PLATELET VOLUME 8.5 fl (7.4-10.4); MONOCYTES % 10.8 % (2.0-8.0); NEUTROPHILS % 70.3 % (40.0-76.0); PLATELET 509 x1000/uL (130-400); RED BLOOD CELL COUNT 3.01 mill/uL (4.7-6.1); RED CELL DISTRIBUTION WIDTH 16.3 % (11.6-14.6)
[2019-07-16 07:50] LABS: CHLORIDE 95 mEq/L (98-107)
[2019-07-16 08:00] VITALS: BP 128/77
[2019-07-16] MEDS: PREDNISONE 20MG TABLET PO SCH (09:10)
[2019-07-16] MEDS: DOCUSATE SODIUM SUGAR FREE 100MG/10ML UDC NG SCH (09:10)
[2019-07-16] MEDS: ZINC SULFATE 220 MG ( 50 ) CAPSULE PO SCH (09:10)
[2019-07-16] MEDS: MULTIVITAMINS,THER W-MINERALS TABLET PO SCH (09:11)
[2019-07-16] MEDS: ASCORBIC ACID 500 MG TABLET PO SCH (09:11)
[2019-07-16] MEDS: FOLIC ACID 1MG TABLET PO SCH (09:11)
[2019-07-16] MEDS: METOPROLOL TARTRATE 25MG TABLET PO SCH ×2 (09:11→21:23)
[2019-07-16] MEDS: ENOXAPARIN 60MG/0.6ML SYR SUBCUT SCH ×2 (09:13→21:25)
[2019-07-16] MEDS: PSYLLIUM SEED PACKET PO SCH ×3 (09:14→17:36)
[2019-07-16] MEDS: MORPHINE SULFATE 2 MG/ML CPJ (NOT FOR IM USE) IV PRN (11:32)
[2019-07-16 12:00] VITALS: BP 134/75
[2019-07-16 16:00] VITALS: BP 133/82
[2019-07-16 20:00] VITALS: BP 121/68
[2019-07-16] MEDS: FAMOTIDINE 20MG TABLET PO SCH (21:22)
[2019-07-17] VITALS (7 sets, daily range): BP systolic 123–146; BP diastolic 75–88
[2019-07-17] MEDS: IPRATROPIUM/ALBUTEROL 0.5-3(2.5)MG/3ML NEB HHN SCH ×3 (00:20→09:36)
[2019-07-17] MEDS: PIPERACILLIN/TAZOBACTAM 3.375 G in DEXT 5% WATER 100 ML IV SCH ×4 (05:10→21:01)
[2019-07-17 05:33] LABS: HEMATOCRIT 27.1 % (42.0-52.0); HEMOGLOBIN 9.4 g/dL (14.0-18.0); MEAN CORPUSCULAR HEMOGLOBIN 33.3 pg (28.0-32.0); MEAN CORPUSCULAR VOLUME 95.9 fL (80.0-94.0); PLATELET 446 x1000/uL (130-400); RED BLOOD CELL COUNT 2.83 mill/uL (4.7-6.1); RED CELL DISTRIBUTION WIDTH 16.4 % (11.6-14.6)
[2019-07-17 07:27] LABS: CHLORIDE 96 mEq/L (98-107)
[2019-07-17] MEDS: DOCUSATE SODIUM SUGAR FREE 100MG/10ML UDC NG SCH (09:18)
[2019-07-17] MEDS: PREDNISONE 20MG TABLET PO SCH (09:19)
[2019-07-17] MEDS: PSYLLIUM SEED PACKET PO SCH (09:19)
[2019-07-17] MEDS: METOPROLOL TARTRATE 25MG TABLET PO SCH ×2 (09:19→20:40)
[2019-07-17] MEDS: FOLIC ACID 1MG TABLET PO SCH (09:19)
[2019-07-17] MEDS: MULTIVITAMINS,THER W-MINERALS TABLET PO SCH (09:19)
[2019-07-17] MEDS: ASCORBIC ACID 500 MG TABLET PO SCH (09:19)
[2019-07-17] MEDS: ZINC SULFATE 220 MG ( 50 ) CAPSULE PO SCH (09:19)
[2019-07-17] MEDS: ENOXAPARIN 60MG/0.6ML SYR SUBCUT SCH ×2 (09:20→20:41)
[2019-07-17] MEDS: DEXT 5%/0.9% NACL 1,000 ML IV SCH (09:22)
[2019-07-17] MEDS: BUDESONIDE 0.5MG/2ML NEB HHN SCH ×2 (09:36→21:11)
[2019-07-17] MEDS ORDERED: POLYETHYLENE GLYCOL 3350 (17GM) 1 DOSE PACK PO SCH (10:00)
[2019-07-17] MEDS ORDERED: CHLORPROMAZINE HCL 10 MG TABLET PO NR (10:30)
[2019-07-17] MEDS: FAMOTIDINE 20MG TABLET PO SCH (20:40)
[2019-07-17] MEDS: MORPHINE SULFATE 2 MG/ML CPJ (NOT FOR IM USE) IV PRN (23:47)
[2019-07-17] MEDS: IPRATROPIUM/ALBUTEROL 0.5-3(2.5)MG/3ML NEB HHN PRN (23:51)
[2019-07-18] VITALS (11 sets, daily range): BP systolic 102–145; BP diastolic 54–91
[2019-07-18] MEDS: DEXT 5%/0.9% NACL 1,000 ML IV SCH ×2 (03:04→12:53)
[2019-07-18] MEDS: PIPERACILLIN/TAZOBACTAM 3.375 G in DEXT 5% WATER 100 ML IV SCH ×2 (03:04→09:10)
[2019-07-18 06:31] LABS: BASOPHILS % 0.3 % (0.0-2.0); HEMATOCRIT. 27.4 % (42.0-52.0); HEMOGLOBIN. 9.3 g/dL (14.0-18.0); LYMPHOCYTES % 16.8 % (20.0-50.0); MEAN CORPUSCULAR HEMOGLOBIN 32.1 pg (28.0-32.0); MEAN PLATELET VOLUME 8.9 fl (7.4-10.4); MONOCYTES % 9.3 % (2.0-8.0); NEUTROPHILS % 73.6 % (40.0-76.0); PLATELET 464 x1000/uL (130-400); RED BLOOD CELL COUNT 2.89 mill/uL (4.7-6.1); RED CELL DISTRIBUTION WIDTH 16.5 % (11.6-14.6)
[2019-07-18] MEDS: BUDESONIDE 0.5MG/2ML NEB HHN SCH ×2 (08:14→21:24)
[2019-07-18] MEDS: MULTIVITAMINS,THER W-MINERALS TABLET PO SCH (09:07)
[2019-07-18] MEDS: FOLIC ACID 1MG TABLET PO SCH (09:07)
[2019-07-18] MEDS: PREDNISONE 20MG TABLET PO SCH (09:07)
[2019-07-18] MEDS: METOPROLOL TARTRATE 25MG TABLET PO SCH ×2 (09:07→20:04)
[2019-07-18] MEDS: ZINC SULFATE 220 MG ( 50 ) CAPSULE PO SCH (09:07)
[2019-07-18] MEDS: ASCORBIC ACID 500 MG TABLET PO SCH (09:07)
[2019-07-18] MEDS: DOCUSATE SODIUM SUGAR FREE 100MG/10ML UDC NG SCH (09:09)
[2019-07-18] MEDS: ENOXAPARIN 60MG/0.6ML SYR SUBCUT SCH ×2 (09:28→20:00)
[2019-07-18] MEDS: FLUCONAZOLE 100MG TABLET PO SCH (15:54)
[2019-07-18] MEDS: MORPHINE SULFATE 2 MG/ML CPJ (NOT FOR IM USE) IV PRN (19:59)
[2019-07-18] MEDS: FAMOTIDINE 20MG TABLET PO SCH (20:00)
[2019-07-18] MEDS: IPRATROPIUM/ALBUTEROL 0.5-3(2.5)MG/3ML NEB HHN SCH (21:25)
[2019-07-19] VITALS (10 sets, daily range): BP systolic 120–143; BP diastolic 26–83
[2019-07-19] MEDS: IPRATROPIUM/ALBUTEROL 0.5-3(2.5)MG/3ML NEB HHN SCH ×4 (01:49→21:50)
[2019-07-19] MEDS: DEXT 5%/0.9% NACL 1,000 ML IV SCH ×2 (03:44→18:23)
[2019-07-19 06:58] LABS: BASOPHILS % 0.1 % (0.0-2.0); HEMATOCRIT. 24.5 % (42.0-52.0); HEMOGLOBIN. 8.7 g/dL (14.0-18.0); LYMPHOCYTES % 9.7 % (20.0-50.0); MEAN CORPUSCULAR VOLUME 95.4 fL (80.0-94.0); MEAN PLATELET VOLUME 8.8 fl (7.4-10.4); MONOCYTES % 4.7 % (2.0-8.0); NEUTROPHILS % 85.5 % (40.0-76.0); PLATELET 373 x1000/uL (130-400); RED BLOOD CELL COUNT 2.56 mill/uL (4.7-6.1); RED CELL DISTRIBUTION WIDTH 16.4 % (11.6-14.6)
[2019-07-19 07:35] LABS: CHLORIDE 105 mEq/L (98-107)
[2019-07-19] MEDS ORDERED: LACTULOSE 20G/30ML UDC PO NR (08:00)
[2019-07-19] MEDS ORDERED: POTASSIUM CHLORIDE 20MEQ/PACKET PO NR ×2 (08:34→21:00)
[2019-07-19] MEDS: BUDESONIDE 0.5MG/2ML NEB HHN SCH ×2 (08:53→21:49)
[2019-07-19] MEDS ORDERED: PREDNISONE 20MG TABLET PO SCH (09:00)
[2019-07-19] MEDS: ZINC SULFATE 220 MG ( 50 ) CAPSULE PO SCH (09:35)
[2019-07-19] MEDS: DOCUSATE SODIUM SUGAR FREE 100MG/10ML UDC NG SCH (09:35)
[2019-07-19] MEDS: FOLIC ACID 1MG TABLET PO SCH (09:35)
[2019-07-19] MEDS: FLUCONAZOLE 100MG TABLET PO SCH (09:35)
[2019-07-19] MEDS: MULTIVITAMINS,THER W-MINERALS TABLET PO SCH (09:36)
[2019-07-19] MEDS: METOPROLOL TARTRATE 25MG TABLET PO SCH ×2 (09:36→21:41)
[2019-07-19] MEDS: ASCORBIC ACID 500 MG TABLET PO SCH (09:36)
[2019-07-19] MEDS: ENOXAPARIN 60MG/0.6ML SYR SUBCUT SCH ×2 (09:37→21:42)
[2019-07-19] MEDS: MORPHINE SULFATE 2 MG/ML CPJ (NOT FOR IM USE) IV PRN (12:35)
[2019-07-19] MEDS ORDERED: FOLI-43 PO (18:12)
[2019-07-19] MEDS ORDERED: FLUC100T PO (18:12)
[2019-07-19] MEDS ORDERED: P20 PO (18:12)
[2019-07-19] MEDS ORDERED: METO25TA6 PO (18:12)
[2019-07-19] MEDS ORDERED: ZINC220C2 PO (18:12)
[2019-07-19] MEDS: FAMOTIDINE 20MG TABLET PO SCH (21:41)
[2019-07-20] VITALS: BP 122/84
[2019-07-20 04:00] VITALS: BP 141/90
[2019-07-20] MEDS: IPRATROPIUM/ALBUTEROL 0.5-3(2.5)MG/3ML NEB HHN SCH (04:45)
== END 2019-07-20 13:13 | DRG 710 ==
LOC: ER 12:20 → EDBEDREQSVC 13:37 → EDBEDREQ 13:37 → EDBEDREQTM 13:37 → ORIP 14:11 → CVICU 16:15 → 5EST 06-24 17:33 → MICUNO 06-25 15:34 → 5EST 07-08 01:59
PROVIDERS: ADMIT Internal Medicine; ATTEND Internal Medicine
PROC: 5A1955Z Respiratory Ventilation, Greater than 96 Consecutive Hours (ICD-10-PCS; principal; 2019-06-21)
PROC: 0DU707Z Supplement Stomach, Pylorus with Autologous Tissue Substitute, Open Approach (ICD-10-PCS; 2019-06-24)
PROC: 30233R1 Transfusion of Nonautologous Platelets into Peripheral Vein, Percutaneous Approach (ICD-10-PCS; 2019-06-25)
PROC: 0BH17EZ Insertion of Endotracheal Airway into Trachea, Via Natural or Artificial Opening (ICD-10-PCS; 2019-06-25)
PROC: 02HV33Z Insertion of Infusion Device into Superior Vena Cava, Percutaneous Approach (ICD-10-PCS; 2019-06-26)
PROC: B548ZZA Ultrasonography of Superior Vena Cava, Guidance (ICD-10-PCS; 2019-06-26)
PROC: 0W9H30Z Drainage of Retroperitoneum with Drainage Device, Percutaneous Approach (ICD-10-PCS; 2019-07-13)
DX: A41.59 Other Gram-negative sepsis (principal); I26.99 Other pulmonary embolism without acute cor pulmonale; D65 Disseminated intravascular coagulation [defibrination syndrome]; J96.01 Acute respiratory failure with hypoxia; K65.0 Generalized (acute) peritonitis; E43 Unspecified severe protein-calorie malnutrition; G92 Toxic encephalopathy; J15.0 Pneumonia due to Klebsiella pneumoniae; R64 Cachexia; K65.1 Peritoneal abscess; K65.9 Peritonitis, unspecified; N17.0 Acute kidney failure with tubular necrosis; K27.5 Chronic or unspecified peptic ulcer, site unspecified, with perforation; R65.21 Severe sepsis with septic shock; D68.9 Coagulation defect, unspecified; E86.0 Dehydration; N39.0 Urinary tract infection, site not specified; F17.210 Nicotine dependence, cigarettes, uncomplicated; D53.9 Nutritional anemia, unspecified; G89.29 Other chronic pain; I10 Essential (primary) hypertension; F12.90 Cannabis use, unspecified, uncomplicated; E87.6 Hypokalemia; E78.5 Hyperlipidemia, unspecified; E87.1 Hypo-osmolality and hyponatremia; K56.7 Ileus, unspecified; N40.0 Benign prostatic hyperplasia without lower urinary tract symptoms; E87.2 Acidosis; E53.8 Deficiency of other specified B group vitamins; R18.8 Other ascites; R04.2 Hemoptysis; B96.1 Klebsiella pneumoniae [K. pneumoniae] as the cause of diseases classified elsewhere; L89.159 Pressure ulcer of sacral region, unspecified stage; J43.9 Emphysema, unspecified; I34.0 Nonrheumatic mitral (valve) insufficiency; I27.81 Cor pulmonale (chronic); S09.93XA Unspecified injury of face, initial encounter; X58.XXXA Exposure to other specified factors, initial encounter; Y93.89 Activity, other specified; Y92.89 Other specified places as the place of occurrence of the external cause; Z68.1 Body mass index [BMI] 19.9 or less, adult; Z79.899 Other long term (current) drug therapy; Z78.1 Physical restraint status; I25.2 Old myocardial infarction; Z86.73 Personal history of transient ischemic attack (TIA), and cerebral infarction without residual deficits; Z87.11 Personal history of peptic ulcer disease; Y99.8 Other external cause status
CPT/HCPCS: 31500; 36415; 36600; 70551; 71045; 71275; 73521; 74176; 74177; 74246; 76705; 76937; 77012; 80048; 80053; 80202; 80305; 81003; 82375; 82378; 82607; 82728; 82746; 82805; 82962; 83036; 83540; 83550; 83605; 83721; 83735; 84100; 84145; 84153; 84443; 84478; 84484; 85025; 85027; 85049; 85384; 86705; 86709; 86803; 86850; 86900; 87015; 87045; 87070; 87075; 87077; 87106; 87186; 87340; 87389; 87427; 87449; 89055; 92610; 93005; 93306; 93880; 93970; 94002; 94003; 94640; 94667; 97110; 97163; 97164; 97166; 97530; 97535; 99152; 99153; 99291; A6261; C1725; C1729; C1769; J0330; J0690; J0692; J1170; J1200; J1650; J1815; J2060; J2250; J2270; J2370; J2405; J2543; J2704; J2710; J2920; J3010; J3370; J3475; J3480; J3490; J7030; J7040; J7042; J7050; J7060; J7070; J7512; J7517; J7608; J7626; P9034; Q0161; Q9963; Q9967; G0103; G0500

== ENCOUNTER 2019-07-29 07:56 | Inpatient (IN) | payer MEDICAID ==
[~2019-07-29] VITALS: Ht 152.4 cm; Wt 39.0 kg
[~2019-07-29 07:56] MED LIST: FLUC100T PO; FOLI-43 PO; METO25TA6 PO; P20 PO; ZINC220C2 PO
[2019-07-29] MEDS ORDERED: DEXTROSE 50% WATER 50ML SYRINGE IV ONE ×2 (08:12→08:46)
[2019-07-29] MEDS ORDERED: DOPAMINE 400MG/250ML PREMIX 250 ML IV ONE ×2 (08:16→08:30)
[2019-07-29] MEDS ORDERED: SODIUM CHLORIDE 0.9% 1,000 ML IV ONE (08:20)
[2019-07-29] MEDS ORDERED: SODIUM CHLORIDE 0.9% 1000ML BAG (SEPSIS BOLUS) IV ONE (08:30)
[2019-07-29 08:42] LABS: BASOPHILS % 0.5 % (0.0-2.0); EOSINOPHILS % 0.1 % (0.0-5.0); LYMPHOCYTES % 46.1 % (20.0-50.0); MEAN CORPUSCULAR HEMOGLOBIN 32.2 pg (28.0-32.0); MEAN CORPUSCULAR VOLUME 98.5 fL (80.0-94.0); MEAN PLATELET VOLUME 9.9 fl (7.4-10.4); MONOCYTES % 0.6 % (2.0-8.0); NEUTROPHILS % 52.7 % (40.0-76.0); PLATELET 62 x1000/uL (130-400); RED BLOOD CELL COUNT 1.92 mill/uL (4.7-6.1); RED CELL DISTRIBUTION WIDTH 17.2 % (11.6-14.6)
[2019-07-29] MEDS ORDERED: EPINEPHRINE 0.1MG/ML (1:10,000) 10ML SYR ONE (08:46)
[2019-07-29 08:48] LABS: INR 1.8; PROTHROMBIN TIME 18.9 sec (9.6-11.0)
[2019-07-29 08:50] LABS: CHLORIDE 109 mEq/L (98-107); HEMOGLOBIN. 6.2 g/dL (14.0-18.0)
[2019-07-29 08:54] LABS: ETHANOL BLOOD < 10 mg/dL
[2019-07-29 08:55] LABS: BG BASE EXCESS -2.5 mmol/L (-2.0-2.0); BG CARBOXYHEMOGLOBIN 0.6 % (0.5-1.5); BG DEOXYHEMOGLOBIN 7.1 % (0.0-5.0); BG FRACTION INSPIRED OXYGEN 100; BG HCO3 ACT 26.3 mmol/L (22.0-26.0); BG METHEMOGLOBIN 0.3 % (0.0-1.5); BG OXYGEN SATURATION 92.8 % (92.0-98.5); BG PCO2 75.1 mmHg (35.0-45.0); BG PH 7.162 (7.350-7.450); BG PO2 104.4 mmHg (75.0-100.0); BG SAMPLE SITE RIGHT FEMORAL; BG TIDAL VOLUME(mL) 450 mL; BG TOTAL HEMOGLOBIN 7.2 g/dL (12.0-18.0); BG VENT MODE VENT - A/C; BG VENT RATE 14 set
[2019-07-29] MEDS ORDERED: PIPERACILLIN/TAZ 3.375G PREMIX 50 ML IV ONE (09:00)
[2019-07-29] MEDS ORDERED: LEVOFLOXACIN 250MG PREMIX 50 ML IV ONE (09:00)
[2019-07-29] MEDS ORDERED: ATROPINE SULFATE 1MG/10ML SYR ONE (09:31)
[2019-07-29] MEDS ORDERED: EPINEPHRINE 1 MG in SODIUM CHLORIDE 0.9% 249 ML IV STA (09:36)
[2019-07-29] MEDS ORDERED: SODIUM BICARBONATE 8.4% 1 MEQ/ML 50ML SYR IV ONE (09:55)
[2019-07-29] MEDS ORDERED: EPINEPHRINE 1 MG in SODIUM CHLORIDE 0.9% 249 ML IV NR (10:00)
[2019-07-29] MEDS ORDERED: NOREPINEPHRINE 4 MG in DEXT 5% WATER 246 ML IV ONE (10:45)
[2019-07-29] MEDS ORDERED: NOREPINEPHRINE 4MG/250ML PMX 250 ML IV NR (11:00)
[2019-07-29 12:07] VITALS: BP 93/40
[2019-07-29] MEDS ORDERED: MEROPENEM 500 MG in SODIUM CHLORIDE 0.9% 50 ML IV SCH (13:15)
[2019-07-29] MEDS ORDERED: DOPAMINE 400MG/250ML PREMIX 250 ML IV PRN (13:15)
[2019-07-29] MEDS ORDERED: ACETAMINOPHEN 325MG TABLET PO PRN (13:15)
[2019-07-29] MEDS ORDERED: NOREPINEPHRINE 8 MG in DEXT 5% WATER 492 ML IV PRN (13:15)
[2019-07-29] MEDS ORDERED: IPRATROPIUM/ALBUTEROL 0.5-3(2.5)MG/3ML NEB HHN PRN ×2 (13:15)
[2019-07-29] MEDS ORDERED: DEXTROSE 50% WATER 50ML SYRINGE IV PRN ×2 (13:15)
[2019-07-29] MEDS ORDERED: CLONIDINE 0.1MG TABLET PO PRN (13:15)
[2019-07-29] MEDS ORDERED: ONDANSETRON HCL 4MG/2ML INJ IV PRN (13:15)
[2019-07-29] MEDS ORDERED: FENTANYL CITRATE/PF 500 MCG in SODIUM CHLORIDE 0.9% 40 ML IV PRN (13:15)
[2019-07-29] MEDS ORDERED: ACETYLCYSTEINE 100MG/ML 10% VIAL 4ML INH SCH (17:00)
[2019-07-29] MEDS ORDERED: PIPERACILLIN/TAZOBACTAM 3.375 G in DEXT 5% WATER 100 ML IV SCH (17:00)
[2019-07-29] MEDS ORDERED: IPRATROPIUM/ALBUTEROL 0.5-3(2.5)MG/3ML NEB HHN SCH (18:00)
== END 2019-07-29 13:30 | disposition expired | DRG 720 ==
LOC: ER 07:56 → CVICU 08:58 → EDBEDREQTM 09:17 → EDBEDREQ 09:17 → ENRESERV 11:29
PROVIDERS: ADMIT Internal Medicine; ATTEND Internal Medicine
PROC: 5A12012 Performance of Cardiac Output, Single, Manual (ICD-10-PCS; principal; 2019-07-29)
PROC: 5A1935Z Respiratory Ventilation, Less than 24 Consecutive Hours (ICD-10-PCS; 2019-07-29)
PROC: 0BH17EZ Insertion of Endotracheal Airway into Trachea, Via Natural or Artificial Opening (ICD-10-PCS; 2019-07-29)
PROC: 06HY33Z Insertion of Infusion Device into Lower Vein, Percutaneous Approach (ICD-10-PCS; 2019-07-29)
DX: A41.9 Sepsis, unspecified organism (principal); J96.01 Acute respiratory failure with hypoxia; I49.01 Ventricular fibrillation; D61.818 Other pancytopenia; J18.9 Pneumonia, unspecified organism; R57.0 Cardiogenic shock; R65.21 Severe sepsis with septic shock; E46 Unspecified protein-calorie malnutrition; N17.9 Acute kidney failure, unspecified; Z66 Do not resuscitate; D68.9 Coagulation defect, unspecified; E87.2 Acidosis; E87.5 Hyperkalemia; E16.2 Hypoglycemia, unspecified; F10.10 Alcohol abuse, uncomplicated; F17.210 Nicotine dependence, cigarettes, uncomplicated; I34.0 Nonrheumatic mitral (valve) insufficiency; J43.9 Emphysema, unspecified; N40.0 Benign prostatic hyperplasia without lower urinary tract symptoms; Z86.711 Personal history of pulmonary embolism; Z86.73 Personal history of transient ischemic attack (TIA), and cerebral infarction without residual deficits; Z87.11 Personal history of peptic ulcer disease; Z79.899 Other long term (current) drug therapy; Z68.1 Body mass index [BMI] 19.9 or less, adult
CPT/HCPCS: 36415; 36600; 71045; 80053; 80320; 82375; 82805; 82962; 83605; 83880; 84145; 84484; 85025; 86850; 86900; 86920; 87077; 87186; 93005; 94002; 96365; 99291; J0461; J1265; J1956; J2543; J3490; J7030; J7050; J7060; G0480